=== PATIENT | female | born 1980 | race Caucasian/White ===

== ENCOUNTER 2016-11-03 13:37 | Inpatient (IN) | payer OTHER ==
[~2016-11-03] VITALS: Ht 165.1 cm; Wt 68.5 kg
[~2016-11-03 13:37] MED LIST: ALPRAZOLAM1 MG PO; CLONAZEPAM0.5 M2 PO; DICYCLOMINE HYD20 MG PO; DIVALPROEX SOD500 M3 PO; DULOXETINE HCL30 MG PO; ESCITALOPRAM OX20 MG PO; GABAPENTIN400 M2 PO; HALOPERIDOL5 MG PO; HYDROXYZINE PAM50 M1 PO; NAPROXEN500 M2 PO; PERCOCET 325 MG1 TA2 PO; PERCOCET 5-3251 EACH PO; SYNTHROID0.075 MG PO; TRAMADOL50 MG PO; TRAZODONE HCL100 M1 PO; ZOFRAN 4 MG TABL4 MG PO
--- NOTE | 2016-11-03 13:54 | NUR ---
PT COMES IN FROM OUTPATIENT PSYCH FOR SUICIDAL IDEATION. PT STATES SHE HAS ATTEMPTED TO KILL HERSELF BEFORE AND FEELS LIKE SHE IS HEADING DOWN THAT ROAD AGAIN. PT DID NOT DO ANY PHYSICAL HARM TO SELF TODAY.
--- NOTE | 2016-11-03 14:03 | NUR ---
PT IN [facility], AWARE OF PLAN OF CARE. UA OBTAINED. WAITING FOR ORDERS
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
--- NOTE | 2016-11-03 14:43 | NUR ---
BLOOD DRAWN AND SENT TO THE LAB BY ([facility])
[2016-11-03] MEDS ORDERED: SEROQUEL100 M1 PO ×2 (14:52→16:24)
[2016-11-03] MEDS ORDERED: LITHIUM CARBON150 M1 PO (14:52)
[2016-11-03] MEDS ORDERED: EFFEXOR XR150 M1 PO (14:53)
[2016-11-03] MEDS ORDERED: EFFEXOR XR75 M1 PO (14:54)
[2016-11-03 15:01] LABS: ABSOLUTE BASOPHIL COUNT 0 /CUMM (0.0-0.2); ABSOLUTE EOSINOPHIL COUNT 0.1 /CUMM (0.0-0.7); ABSOLUTE LYMPH COUNT 1.2 /CUMM (1.2-3.4); ABSOLUTE MONOCYTE COUNT 0.4 /CUMM (0.10-0.60); BASOPHIL % 0.5 % (0.0-2.0); EOSINOPHIL % 2.9 % (0-5); GRANULOCYTE % 63.2 % (42.2-75.2); HEMATOCRIT 39.6 % (37-47); MEAN CORPUSCULAR HGB 28.8 PG (27.0-31.0); MEAN CORPUSCULAR HGB CONC 33.5 G/DL (33.0-37.0); MEAN CORPUSCULAR VOLUME 85.9 FL (81.0-99.0); PLATELET COUNT 260 /CUMM (130-400); RBC DISTRIBUTION WIDTH 13.6 % (11.5-14.5); RED BLOOD CELL CT 4.61 /CUMM (4.20-5.40); WHITE BLOOD CELL COUNT 4.7 /CUMM (4.8-10.8)
--- NOTE | 2016-11-03 15:34 | ED PSY CRISIS COLLATERAL NOTE ---
Collateral Note Collateral Note Family/Inform/Rosalia Contacts: [facility] out pt therapist Olinda informed that pt is being sent to the ED for Crisis Eval. she sent the following Email to inform of the clinical concerns : Madhavi Bob is on your way. She came in today for an individual session and shared she has had thoughts of harming herself and last night she came close to acting on them. She was going to take more of her medication, but her boyfriend was watching her. She has DCF involvement, her worker, Jorge is out today but I spoke with her highway maintenance supervisor, Bea in the [facility]. If you need any more information, please feel free to contact me. Thanks, Kiki
--- NOTE | 2016-11-03 15:41 | NUR ---
PT RESTING COMFORTABLY ON STRETCHER, CALM/COOPERATIVE. SITTER IN ATTENDANCE. OFFERS NO COMPLAINTS AT THIS TIME.
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
--- NOTE | 2016-11-03 17:40 | NUR ---
RN REPORT GIVEN TO CPS
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
[2016-11-03 20:44] VITALS: BP 111/73
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
--- NOTE | 2016-11-04 05:44 | NUR ---
PT SAD AND TEARFUL DUIRING INTERVIEW FOR LATE ADMISSION. PT AGREES TO BE SAFE ON THE UNIT. SHE APPEARED TO SLEEP WELL.
[2016-11-04 07:06] LABS: LITHIUM 0.7 mmol/L (0.6-1.2)
[2016-11-04 08:04] VITALS: BP 101/74
--- NOTE | 2016-11-04 09:26 | NUR ---
DR KEMP NOTIFIED OF PTS C/O SEVERE LOWER ABDMINAL PAIN AND HX OF OVARIAN CYSTS. SHE IS AFEBRILE AND VSS. PT TO HAVE ULTRASOUND OF ABDOMEN
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
--- NOTE | 2016-11-04 10:59 | SOCIAL WORKER PROG NOTE PSYCH ---
Social Work Progress Note Progress Note Met with Madhavi today to complete social history. Madhavi was in bed, stated she has "bad cramps" and is in alot of pain. She stated she is still feeling very depressed, has SI, but feels safe onthe unit. She denied HI, no psychosis. She stated trigger to SI with plan to OD on pills, was conflicts with her boyfriend, Stefan (who she resides with). She stated she heard through her 14yo son that her boyfriend thinks she should get another job, that she doesn't make enough money to pay bills, and concerned that they may not be able to afford food at some point. 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 She stated her sleep has been disrupted over the past week or so, sleeping only 3hrs per night. Her appetite decreased, and low motivation and concentration. She stated her 14yo son is staying with his paternal Aunt while she is in the hospital. She identified that her boyfriend stated he told her he doesn't think he can go through another hospitalization with her, stating he has to worry about his son, and can't handle it anymore. Informed Madhavi her therapist is Aaliyah Borden LCSW. She agreed to a family meeting with her boyfriend, Stefan, but is concerned he may not want to participate. SHe identified that her cousin, Elsie may be a support if he is not willing to be.
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
--- NOTE | 2016-11-04 12:30 | ULTRASOUND REPORT ---
EXAMINATION: US PELVIS COMPLETE CLINICAL INFORMATION: Right lower pelvic pain; the last menstrual period was on 09/18/2016. COMPARISON: Pelvic ultrasound examinations dated 11/20/2015 and 04/24/2015. TECHNIQUE: Transabdominal and transvaginal imaging were performed. FINDINGS: The uterus is of normal size and echogenicity measuring 8.3 x 3.6 x 4.8 cm. The uterus is anteverted. A regular homogeneous endometrium is identified measuring 0.4 cm. The cervical length is 2.4 cm. Both ovaries are of normal echogenicity and show normal Doppler flow. The right measures 2.9 x 2.4 x 2.2 cm for a volume of 8.5 mL. The left measures 4.4 x 4.1 x 3.5 cm for a volume of 34.0 mL. The left ovary contains a 4.1 x 2.7 x 2.9 cm complex cyst with septations and internal cystic and hypoechoic, reticulated contents. There is no associated color Doppler flow. This is likely a hemorrhagic cyst, although this cannot be said with absolute certainty. There is no pelvic free fluid. IMPRESSION: 1. A probable left ovarian hemorrhagic, complex cyst is seen, with dimensions as detailed. As a precaution, recommend repeat pelvic sonography in 6 weeks to ensure regression/resolution and exclude the possibility of underlying neoplasm. As well, recommend Gynecology evaluation and management. 2. There is normal color Doppler flow to the bilateral ovaries, without finding to suggest torsion.
[2016-11-04 12:44] VITALS: BP 107/67
--- NOTE | 2016-11-04 13:36 | NUR ---
PT HAS BEEN IN BED FOR THE MAJORITY OF THE DAY. PT EXPRESSED INTENSE PAIN AND IS ANXIOUS AND WORRIED. PT REPORTS HAVING MINIMAL APPETITE. LITTLE TO NO INTERACTION WITH OTHERS, ISOLATIVE AND WITHDRAWN. PT TOLD STAFF THAT SHE DID NOT HAVE SI, BUT THAT IT CAN CHANGE AT ANY MOMENT AND THAT SHE DOES NOT ALWAYS FEEL SAFE. PT AGREED TO INFORM STAFF IF/WHEN HER MOOD OR THOUGHTS OF SI CHANGE.
--- NOTE | 2016-11-04 14:17 | NUR ---
DR. AMBRIZ NOTIFIED AT THIS TIME FOR CONSULT, NO FURTHER ORDERS AT THIS TIME.
[2016-11-04 17:15] VITALS: BP 93/59
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
[2016-11-04 19:50] VITALS: BP 111/64
--- NOTE | 2016-11-04 22:05 | NUR ---
PT IS ISOLATIVE AND WITHDRAWN, REMAINING IN BED FOR MAJORITY OF EVENING. MINIMAL INTERACTION WITH PEERS OR STAFF. COOPERATIVE AND COMPLIANT. REFUSED WRAP UP MEETING. PT REPORTS HIGH LEVELS OF PAIN, 10/10 AT 1600 VITALS AND 8/10 AT 2000. NO SI REPORTED. PT HAS AN ANXIOUS MOOD AND FLAT/CONSTRICTED AFFECT.
--- NOTE | 2016-11-05 05:53 | NUR ---
PATIENT SLEPT ALL NIGHT.
[2016-11-05 07:52] VITALS: BP 92/59
[2016-11-05 07:54] LABS: ABSOLUTE BASOPHIL COUNT 0 /CUMM (0.0-0.2); ABSOLUTE EOSINOPHIL COUNT 0.2 /CUMM (0.0-0.7); ABSOLUTE GRANULOCYTE CT 2.8 /CUMM (1.4-6.5); ABSOLUTE LYMPH COUNT 1.4 /CUMM (1.2-3.4); ABSOLUTE MONOCYTE COUNT 0.5 /CUMM (0.10-0.60); BASOPHIL % 0.5 % (0.0-2.0); EOSINOPHIL % 3.4 % (0-5); GRANULOCYTE % 57.4 % (42.2-75.2); HEMATOCRIT 37.8 % (37-47); MEAN CORPUSCULAR HGB 29.2 PG (27.0-31.0); MEAN CORPUSCULAR HGB CONC 34.2 G/DL (33.0-37.0); MEAN CORPUSCULAR VOLUME 85.3 FL (81.0-99.0); MEAN PLATELET VOLUME 8.3 FL (7.4-10.4); PLATELET COUNT 266 /CUMM (130-400); RBC DISTRIBUTION WIDTH 13.2 % (11.5-14.5); RED BLOOD CELL CT 4.43 /CUMM (4.20-5.40); WHITE BLOOD CELL COUNT 4.8 /CUMM (4.8-10.8)
--- NOTE | 2016-11-05 09:35 | OP PSYCH INCIDENTAL NOTE ---
OPS Incidential Note Details: Spoke with DCF worker, Jorge who called to get update on patient. Informed Jorge that patient was admitted to our inpatient department and provided contact number.
[2016-11-05 12:17] VITALS: BP 110/64
--- NOTE | 2016-11-05 13:22 | NUR ---
DR. LORENZO CONTACTED RE: PT REPORTING BEING IN A LOT OF PAIN AND REQUESTING HELP RE: THAT, PERCOCET CHANGED FROM EVERY 6 HOURS PRN TO EVERY 4 AND BOWEL REGIMENT TOO TO PREVENT CONSTIPATION - PT INFORMED ON THIS AND CAN REFUSED IF THERE IS NO ISSUE WITH THIS, VERBALIZED UNDERSTANDING.
--- NOTE | 2016-11-05 14:06 | NUR ---
PT SPENT MOST OF THE DAY IN HER ROOM SECONDARY TO ABDOMINAL PAIN R/T OVARIAN CYST. SHE DID TRY TO ATTEND ONE GROUP BUT FOUND IT DIFFICULT. PT APPEARS DEPRESSED AT TIMES AND WHEN ASKED SHE DENIED SUICIDAL THOUGHTS OR THOUGHTS OF SELF HARM
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
[2016-11-05 16:13] VITALS: BP 90/62
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
[2016-11-05 19:34] VITALS: BP 107/51
--- NOTE | 2016-11-05 21:54 | NUR ---
PT IS ISOLATIVE AND WITHDRAWN, REMAINING IN BED FOR MAJORITY OF EVENING. MINIMAL INTERACTION WITH PEERS AND STAFF. REFUSED WRAP UP MEETING. PT IS REPORTING HIGH LEVELS OF PAIN. NO SI REPORTED. PT HAS A ANXIOUS MOOD AND FLAT/CONSTRICTED AFFECT.
--- NOTE | 2016-11-06 04:47 | NUR ---
SLEPT WELL, OOB X1 FOR BR THEN REQUESTED HER PAIN MED. MED GIVEN WITH GOOD FFECT NOTED.
[2016-11-06 07:56] VITALS: BP 94/58
--- NOTE | 2016-11-06 11:39 | CP SOUTH PROGRESS NOTE PSYCH ---
Psych (Inpt) Progress Note Progress Note Progress Note: I discussed this patient's progress to date, current mental status, treatment process in the context of the treatment plan, and discharge planning with staff/ team in the daily morning inpatient team meeting. I also met with the patient myself in individual session. SUBJECTIVE: "I have really sharp pain from the ovarian cysts. I was ready to give up last night. I just wanted to give it up and end it all. It's not really helping my mental issues." OBJECTIVE: Current Medications Sig/Sixto Start time Last Medication Dose Route Stop Time Status Admin Clonazepam 1.5 MG AT BEDTIME 11/04 2200 AC 11/05 PO 04/05 2159 2132 Ibuprofen 600 MG Q6P PRN 11/04 0930 DC 11/06 PO 0806 [place] Carbonate 450 MG 08,11/05 2000 AC 11/06 PO 0805 [place] Carbonate 450 MG BID 11/03 2200 DC 11/05 PO 0908 Nicotine 14 MG 0800 11/05 0800 AC 11/06 TOP 0805 Oxycodone/ 1 TAB Q4 HRS NEEDED PRN 11/05 1315 AC 11/06 Acetaminophen PO 1019 Oxycodone/ 1 TAB Q6P PRN 11/04 1300 DC 11/05 Acetaminophen PO 1209 Quetiapine Fumarate 100 MG 0800 11/06 0800 AC 11/06 PO 0806 Quetiapine Fumarate 300 MG AT BEDTIME 11/05 2200 AC 11/05 PO 2133 Quetiapine Fumarate 200 MG QAM 11/04 1000 DC 11/05 PO 0908 Quetiapine Fumarate 200 MG AT BEDTIME 11/03 2200 DC 11/04 PO 2208 Senna/Docusate Sodium 1 TAB BID PRN 11/05 1315 AC PO Venlafaxine HCl 225 MG AT BEDTIME 11/03 2200 AC 11/05 PO 2132 Vital Signs Date Time Temp Pulse Resp B/P Pulse O2 O2 Flow FiO2 Ox Delivery Rate 11/06 0756 97.5 64 94/58 11/05 1934 98.1 65 107/51 11/05 1613 72 90/62 11/05 1217 69 110/64 ASSESSMENT: Patient complains of continuing pain from her ovarian cyst. Pain is somewhat relieved with Percocet. Patient is ambulating on the unit with slow but steady gait, as per nursing report she ate breakfast. She reports continuing depression and anxiety. Continuing suicidal thoughts, with no current plan or intent to harm herself. She is able contract for safety while here on the unit. States she is not able to focus on her mental health issues because of the abdominal pain. Nursing is calling the hospitalist for reevaluation of the patient's pain medications. Ibuprofen was discontinued due to contraindication with lithium. Denies homicidal ideation, auditory hallucinations, visual hallucinations, paranoid ideation. She reports that she did not sleep well last night, tossing and turning throughout the night due to abdominal pain. States she has little appetite, but is forcing herself to eat. Speech is well articulated, goal-directed, average in rate, volume and tone. Cooperative. Alert and oriented 3. Depressed and anxious affect. The patient understands the risks/benefits/side effects of the medication and is agreeable to continue taking them. PLAN: Hospitalist to reevaluate pain medication. Repeat lithium on Wednesday morning. Continue with other current management as patient is improving. Continue to provide support and encouragement.
[2016-11-06 12:19] VITALS: BP 99/51
--- NOTE | 2016-11-06 14:07 | SOCIAL WORKER PROG NOTE PSYCH ---
Social Work Progress Note Progress Note Patient continues to endorse +SI today with no plan while in the hosptial. Patient continues to present with depressed mood and affect and complaining of pain due to medical issues. This securities underwriter left voicemail for patients cousinKeyonna ([phone]), and invited her in for a family meeting sometime next week. Patient is aware that I called [facility] to inform them of her admission and that she will need to follow up with HR. Patient is alert and oriented x4, insight and judgement fair and denies HI/AH/VH.
--- NOTE | 2016-11-06 14:18 | NUR ---
PT IS COMPLAINING OF HIGH LEVELS OF PAIN 10/10 RELATED TO HER REPRODUCTIVE SYSTEM. DESPITE HER PAIN PT HAS BEEN ATTENDING GROUPS AND OUT IN THE COMMUNITY ALL DAY. RN NOTIFIED OF HER PAIN LEVEL. PT IS POLITE AND COOPERATIVE. DENIES ANY SI/HI TO THIS MHW AND VS ARE STABLE.
[2016-11-06 15:43] VITALS: BP 107/63
[2016-11-06 19:49] VITALS: BP 106/68
--- NOTE | 2016-11-06 22:06 | NUR ---
PT IS COOPERATIVE WITH STAFF AND PEERS, AND COMPLIANT WITH UNIT RULES. PT COMPLAINS OF SEVERE PAIN, AND SPENDS THE MAJORITY OF THE EVENING ISOLATING SELF WITHIN PT ROOM. MOOD IS STABLE, AFFECT IS FLAT/CONSTRICTED, COMMUNICATION IS ORGANIZED AND APPEARS NORMAL IN ALL RESPECTS, AND APPETITE IS NORMAL. PT DENIES SI AT THIS TIME.
--- NOTE | 2016-11-07 05:46 | NUR ---
CONTINUES TO LIE IN BED IN PAIN 05/18. TAKES PERCOCET Q4HRS AND SLEEPS.
[2016-11-07 06:23] LABS: ABSOLUTE BASOPHIL COUNT 0 /CUMM (0.0-0.2); ABSOLUTE EOSINOPHIL COUNT 0.1 /CUMM (0.0-0.7); ABSOLUTE GRANULOCYTE CT 1.9 /CUMM (1.4-6.5); ABSOLUTE MONOCYTE COUNT 0.3 /CUMM (0.10-0.60); BASOPHIL % 0.4 % (0.0-2.0); EOSINOPHIL % 3.1 % (0-5); GRANULOCYTE % 57.5 % (42.2-75.2); HEMATOCRIT 39.9 % (37-47); MEAN CORPUSCULAR HGB 28.8 PG (27.0-31.0); MEAN CORPUSCULAR HGB CONC 33.2 G/DL (33.0-37.0); MEAN CORPUSCULAR VOLUME 86.7 FL (81.0-99.0); MEAN PLATELET VOLUME 8.1 FL (7.4-10.4); PLATELET COUNT 253 /CUMM (130-400); WHITE BLOOD CELL COUNT 3.4 /CUMM (4.8-10.8)
[2016-11-07 08:07] VITALS: BP 102/65
[2016-11-07 12:14] VITALS: BP 110/61
--- NOTE | 2016-11-07 14:28 | NUR ---
VISIBLE AT TIME AMBULATING SLOWLY ON UNIT. MOOD IS STABLE, BLUNTED AFFECT. C/O PAIN RELATED TO OVARIAN CYST.DENIED THOUGHTS OF SELF HARM WHEN ASKED.
[2016-11-07 16:00] VITALS: BP 112/63
--- NOTE | 2016-11-07 16:58 | CP SOUTH PROGRESS NOTE PSYCH ---
Psych (Inpt) Progress Note Progress Note Include the following elements, when applicable: Involvement in the active treatment of the patient with behavioral observations of the patient and the patient's response to the treatment. Review of the ongoing treatment process in the context of the treatment plan. Indication of how multi-disciplinary staff members are carrying out the treatment plan. Plans for future interventions and recommendations for revision of the treatment plan. Liaison with other physicians/providers. Progress Note: Pt in bed. She is very depressed and upset as bf moving his things out of joint home they have shared. He stated that she was "Selfish" for her depression. She is very upset. Notes some passive SI but denies active. Feels can come to staff if worsening thoughts. She also notes continued pain from ovarian cyst. Not sleeping well. Current Medications Sig/Sixto Start time Last Medication Dose Route Stop Time Status Admin Clonazepam 1.5 MG AT BEDTIME 11/04 220 AC 11/06 PO 11/11 2159 2139 [place] Carbonate 450 MG 799,11/05 PO 0816 Nicotine 14 MG 11/05 08 AC 11/07 TOP 0816 Oxycodone/ 1 TAB Q4 HRS NEEDED PRN 11/05 1315 AC 11/07 Acetaminophen PO 1225 Quetiapine Fumarate 100 MG 11/06 0800 AC 11/07 PO 0816 Quetiapine Fumarate 300 MG AT BEDTIME 11/05 2200 AC 11/06 PO 2138 Senna/Docusate Sodium 1 TAB BID PRN 11/05 1315 AC PO Trazodone HCl 50 MG AT BEDTIME NEED.. 11/07 1700 UNVr PO Venlafaxine HCl 225 MG AT BEDTIME 11/03 2200 AC 11/06 PO 2138 Laboratory Tests 11/07 11/07 0810 0555 Chemistry Sodium (137 - 145 mmol/L) 136 L Potassium (3.5 - 5.1 mmol/L) 4.5 Chloride (98 - 107 mmol/L) 100 Carbon Dioxide (22 - 30 mmol/L) 33 H Anion Gap (5 - 16) 4 L BUN (7 - 17 mg/dL) 13 Creatinine (0.5 - 1.0 mg/dL) 0.8 Estimated GFR (>60 ml/min) > 60 BUN/Creatinine Ratio (7 - 25 %) 16.3 Hematology CBC w Diff NO MAN DIFF REQ WBC (4.8 - 10.8 /CUMM) 3.4 L RBC (4.20 - 5.40 /CUMM) 4.60 Hgb (12.0 - 16.0 G/DL) 13.3 Hct (37 - 47 %) 39.9 MCV (81.0 - 99.0 FL) 86.7 MCH (27.0 - 31.0 PG) 28.8 RDW (11.5 - 14.5 %) 13.0 Plt Count (130 - 400 /CUMM) 253 MPV (7.4 - 10.4 FL) 8.1 Gran % (42.2 - 75.2 %) 57.5 Lymphocytes % (20.5 - 51.1 %) 28.8 Monocytes % (1.7 - 9.3 %) 10.2 H Eosinophils % (0 - 5 %) 3.1 Basophils % (0.0 - 2.0 %) 0.4 Absolute Granulocytes (1.4 - 6.5 /CUMM) 1.9 Absolute Lymphocytes (1.2 - 3.4 /CUMM) 1.0 L Absolute Monocytes (0.10 - 0.60 /CUMM) 0.3 Absolute Eosinophils (0.0 - 0.7 /CUMM) 0.1 Absolute Basophils (0.0 - 0.2 /CUMM) 0 PUBS MCHC (33.0 - 37.0 G/DL) 33.2 Urines Urine Color (YEL,AMB,STR) YEL Urine Clarity (CLEAR) CLEAR Urine pH (5.0 - 8.0) 7.0 Ur Specific [place] (1.001 - 1.035) 1.015 Urine Protein (NEG,<30 MG/DL) NEG Urine Ketones (NEG) NEG Urine Nitrite (NEG) NEG Urine Bilirubin (NEG) NEG Urine Urobilinogen (0.1 - 1.0 EU/dl) 0.2 Ur Leukocyte Esterase (NEG) NEG Ur Microscopic SEDIMENT EXAMINED Urine RBC (0 - 5 /HPF) RARE Urine WBC (0 - 2 /HPF) RARE Ur Epithelial Cells (NONE,FEW) MOD H Urine Bacteria (NEG/NONE) FEW H Urine Hemoglobin (NEG) TRACE-INTACT Urine Glucose (N MG/DL) NEG 11/05 0613 Chemistry Sodium (137 - 145 mmol/L) 137 Potassium (3.5 - 5.1 mmol/L) 4.1 Chloride (98 - 107 mmol/L) 103 Carbon Dioxide (22 - 30 mmol/L) 29 Anion Gap (5 - 16) 5 BUN (7 - 17 mg/dL) 15 Creatinine (0.5 - 1.0 mg/dL) 0.9 Estimated GFR (>60 ml/min) > 60 BUN/Creatinine Ratio (7 - 25 %) 16.7 Hematology CBC w Diff NO MAN DIFF REQ WBC (4.8 - 10.8 /CUMM) 4.8 RBC (4.20 - 5.40 /CUMM) 4.43 Hgb (12.0 - 16.0 G/DL) 12.9 Hct (37 - 47 %) 37.8 MCV (81.0 - 99.0 FL) 85.3 MCH (27.0 - 31.0 PG) 29.2 RDW (11.5 - 14.5 %) 13.2 Plt Count (130 - 400 /CUMM) 266 MPV (7.4 - 10.4 FL) 8.3 Gran % (42.2 - 75.2 %) 57.4 Lymphocytes % (20.5 - 51.1 %) 28.8 Monocytes % (1.7 - 9.3 %) 9.9 H Eosinophils % (0 - 5 %) 3.4 Basophils % (0.0 - 2.0 %) 0.5 Absolute Granulocytes (1.4 - 6.5 /CUMM) 2.8 Absolute Lymphocytes (1.2 - 3.4 /CUMM) 1.4 Absolute Monocytes (0.10 - 0.60 /CUMM) 0.5 Absolute Eosinophils (0.0 - 0.7 /CUMM) 0.2 Absolute Basophils (0.0 - 0.2 /CUMM) 0 PUBS MCHC (33.0 - 37.0 G/DL) 34.2 Vital Signs Date Time Temp Pulse Resp B/P Pulse O2 O2 Flow FiO2 Ox Delivery Rate 11/07 1600 75 112/63 11/07 1214 89 110/61 11/07 0807 97.6 69 102/65 11/06 1949 99.2 69 106/68 MSE Appears as stated age. Cooperative behavior, good, appropriate eye contact. Nl speech rate and prosody. No psychomotor retardation or agitation. Mood fine Affect depressed, constricted, appropriate, non-liable. Linear and goal directed thought process. Denies SI or HI. Does not appear to be responding to internal stimuli. Denies AVHs, paranoia, or delusions. I/J: limited A/P: Pt with MDD now with increasing depression in the setting of breakup from bf and pain. - Added trazodone for sleep - Continue perocet for ovarian pain - Encourage intergration into the milieu
[2016-11-07 19:29] VITALS: BP 103/60
--- NOTE | 2016-11-07 21:41 | NUR ---
PT IS STABLE WITH FLAT/CONSTRICTED AFFECT. PT REPORTED PAIN ON SCALE OF 10/10 AND THAT NOT MUCH "HELPS TO RELIEVE THE PAIN". PT DID STAY OUT IN THE COMMUNITY FOR MOST OF EVENING SHIFT AND INTERACTS FREQUENTLY WITH OTHERS. PT ATTENDED WRAP UP GROUP AND MADE GOAL FOR THE DAY. VS ARE STABLE AND REPORTED PASSIVE SI BUT NO PLAN WHILE ON UNIT.
--- NOTE | 2016-11-08 06:21 | NUR ---
PT APPEARED TO SLEEP WELL. PT WITH OVARIAN CYST PAIN. 5 PERCOCETS USED YSTERDAY.
[2016-11-08 07:31] VITALS: BP 117/64
[2016-11-08 12:12] VITALS: BP 104/66
--- NOTE | 2016-11-08 12:27 | CP SOUTH PROGRESS NOTE PSYCH ---
Psych (Inpt) Progress Note Progress Note Include the following elements, when applicable: Involvement in the active treatment of the patient with behavioral observations of the patient and the patient's response to the treatment. Review of the ongoing treatment process in the context of the treatment plan. Indication of how multi-disciplinary staff members are carrying out the treatment plan. Plans for future interventions and recommendations for revision of the treatment plan. Liaison with other physicians/providers. Progress Note: Pt notes that she is in a lot of pain. Amenable to addition of warm compress. Would like to be seen by GAS PUMPING STATION SUPERVISOR wednesday if possible. She spoke about recent breakup with bf. He called yesterday to ask if he could have the TV. Pt was frustrated by this and hung up on him. She is worried about discharge as she will be returning to the home they once shared. Pt is hopeful about family meeting with mother and cousin, Supriya, who is a strong support for her. Notes ongoing passive vague SI. Denies active. Approached staff last night and remained visable when felt passive SI worsening. Current Medications Sig/Sixto Start time Last Medication Dose Route Stop Time Status Admin Clonazepam 1.5 MG AT BEDTIME 11/04 2200 AC 11/07 PO 11/11 2159 2119 [place] Carbonate 450 MG 799,11/05 AC 11/08 PO 0758 Nicotine 14 MG 11/05 0800 AC 11/08 TOP 0758 Oxycodone/ 1 TAB Q4 HRS NEEDED PRN 11/05 1315 AC 11/08 Acetaminophen PO 1138 Quetiapine Fumarate 100 MG 11/06 0800 AC 11/08 PO 0758 Quetiapine Fumarate 300 MG AT BEDTIME 11/05 2200 AC 11/07 PO 2120 Senna/Docusate Sodium 1 TAB BID PRN 11/05 1315 AC 11/08 PO 1137 Trazodone HCl 50 MG AT BEDTIME NEED.. 11/07 1700 AC PO Venlafaxine HCl 225 MG AT BEDTIME 11/03 2200 AC 11/07 PO 2119 Laboratory Tests 11/07 11/07 0810 0555 Chemistry Sodium (137 - 145 mmol/L) 136 L Potassium (3.5 - 5.1 mmol/L) 4.5 Chloride (98 - 107 mmol/L) 100 Carbon Dioxide (22 - 30 mmol/L) 33 H Anion Gap (5 - 16) 4 L BUN (7 - 17 mg/dL) 13 Creatinine (0.5 - 1.0 mg/dL) 0.8 Estimated GFR (>60 ml/min) > 60 BUN/Creatinine Ratio (7 - 25 %) 16.3 Hematology CBC w Diff NO MAN DIFF REQ WBC (4.8 - 10.8 /CUMM) 3.4 L RBC (4.20 - 5.40 /CUMM) 4.60 Hgb (12.0 - 16.0 G/DL) 13.3 Hct (37 - 47 %) 39.9 MCV (81.0 - 99.0 FL) 86.7 MCH (27.0 - 31.0 PG) 28.8 RDW (11.5 - 14.5 %) 13.0 Plt Count (130 - 400 /CUMM) 253 MPV (7.4 - 10.4 FL) 8.1 Gran % (42.2 - 75.2 %) 57.5 Lymphocytes % (20.5 - 51.1 %) 28.8 Monocytes % (1.7 - 9.3 %) 10.2 H Eosinophils % (0 - 5 %) 3.1 Basophils % (0.0 - 2.0 %) 0.4 Absolute Granulocytes (1.4 - 6.5 /CUMM) 1.9 Absolute Lymphocytes (1.2 - 3.4 /CUMM) 1.0 L Absolute Monocytes (0.10 - 0.60 /CUMM) 0.3 Absolute Eosinophils (0.0 - 0.7 /CUMM) 0.1 Absolute Basophils (0.0 - 0.2 /CUMM) 0 PUBS MCHC (33.0 - 37.0 G/DL) 33.2 Urines Urine Color (YEL,AMB,STR) YEL Urine Clarity (CLEAR) CLEAR Urine pH (5.0 - 8.0) 7.0 Ur Specific [place] (1.001 - 1.035) 1.015 Urine Protein (NEG,<30 MG/DL) NEG Urine Ketones (NEG) NEG Urine Nitrite (NEG) NEG Urine Bilirubin (NEG) NEG Urine Urobilinogen (0.1 - 1.0 EU/dl) 0.2 Ur Leukocyte Esterase (NEG) NEG Ur Microscopic SEDIMENT EXAMINED Urine RBC (0 - 5 /HPF) RARE Urine WBC (0 - 2 /HPF) RARE Ur Epithelial Cells (NONE,FEW) MOD H Urine Bacteria (NEG/NONE) FEW H Urine Hemoglobin (NEG) TRACE-INTACT Urine Glucose (N MG/DL) NEG Vital Signs Date Time Temp Pulse Resp B/P Pulse O2 O2 Flow FiO2 Ox Delivery Rate 11/08 1212 83 104/66 11/08 0731 98.6 76 117/64 11/07 1929 98.7 74 103/60 11/07 1600 75 112/63 MSE Appears as stated age. Cooperative behavior, good, appropriate eye contact. Nl speech rate and prosody. No psychomotor retardation or agitation. Mood fine Affect depressed, constricted, appropriate, non-liable. Linear and goal directed thought process. Denies SI or HI. Does not appear to be responding to internal stimuli. Denies AVHs, paranoia, or delusions. I/J: limited A/P: Pt with MDD now with increasing depression in the setting of breakup from bf and pain. - Continue trazodone for sleep - Continue perocet for ovarian pain, to add warm compress - Pt wants to see GAS PUMPING STATION SUPERVISOR tomorrow - Family meeting tomorrow - Encourage intergration into the milieu
--- NOTE | 2016-11-08 13:34 | NUR ---
PT IS COMPLIANT AND COOPERATIVE WITH UNIT RULES. PT IS ISOATLIVE IN ROOM FOR MOST OF SHIFT BUT IS ATTENDING SOME GROUPS. PT ATTENDED PLANNING BUT NOT FOCUS. PT MOOD IS STABLE WITH A CONSTRICTED AFFECT. PT REPROTED SI THOUGHTS, PASSIVE THOUGHTS BECAUSE OF THE PAIN. PT DENIES PLAN.
--- NOTE | 2016-11-08 15:34 | NUR ---
PT SHOWED STAFF SUPERFICIAL LACS TO ANTERIOR LEFT WRIST AND TOLD THIS RN THAT THEY WERE MADE IN AN ATTEMPT TO RELEASE TENSION AND ANXIETY AND NOT IN ANY WAY A SUICIDAL ATTEMPT AND THAT THE THOUGHTS ARE FLEETING AND CURRENTLY NO SELF HARM THOUGHTS AND WOULD LET STAFF KNOW IF THAT CHANGED. LEFT WRIST CLEANED AND DRESSED AND COMFORT PROVIDED, DR. DHALIWAL CONTACTED AND AWARE WELL ALL STAFF - NO FURTHER ORDERS.
[2016-11-08 15:41] VITALS: BP 115/63
[2016-11-08 20:08] VITALS: BP 101/61
--- NOTE | 2016-11-08 22:22 | NUR ---
PATIENT ALERT AND ORIENTED X3; SHE CONTINUES TO ENDORSE PASSIVE SUICIDAL IDEATION, BUT CONTRACTS FOR SAFETY WHILE IN THE HOSPITAL; NO FURTHER ACTS OF CUTTING OR SELF HARM ON 3-11 SHIFT; PATIENT AGREED TO COME TO STAFF IF SHE HAS ANY FURTHER URGES TO CUT; AFFECT REMAINS SAD, WITH DEPRESSION EVIDENT; PAIN DUE TO OVARIAN CYST CONTINUES TO BE A COMPLICATING FACTOR; PATIENT PRESENT IN LOUNGE MOST OF EVENING. WATCHING TV AND OBSERVING PEERS AND STAFF.
--- NOTE | 2016-11-09 07:37 | NUR ---
PATIENT SLEPT MOST OF NIGHT BUT WAS AWAKE AT 0600 IN SEVERE PELVIC PAIN DUE TO OVARIAN CYST AND WAS GIVEN PRN PERCOCET.
[2016-11-09 07:50] VITALS: BP 99/56
[2016-11-09 12:24] VITALS: BP 111/65
--- NOTE | 2016-11-09 14:54 | NUR ---
PT IS COMPLIANT AND COOPERATIVE. MOOD IS STABLE WITH A FLAT AND TEARFUL AFFECT. PT DENIES SI AT THIS TIME, C/O PAIN D/T OVARIAN CYST. PT HAS BEEN WITHDRAWN AND ISOLATIVE IN BED- SLEEPING MUCH OF SHIFT. PT HAS MINIMAL INTERACTION WITH PEERS AND STAFF. PT IS ATTENDING SOME GROUPS. VITALS ARE STABLE, APPETITE IS GOOD.
--- NOTE | 2016-11-09 15:28 | SOCIAL WORKER PROG NOTE PSYCH ---
Social Work Progress Note Progress Note Patient continues to present today with depressed mood and affect. Patient had a difficult weekend and admitted to the [facility] with a fork. Patient reports having a difficult time processing her recent break up and fears returning home to an empty house. Patient reports that her boyfriend did move out of the house and she has not talked to him. Patients cousin plans to come to the hospital tomorrow at 3pm for a family meeting. Patient reports fleeting suicidal thoughts but does report feeling somewhat improved since her admission. She reports anxiety over the pain she is experiencing due to medical condition and is concerned that it could be worsening. Patient informed to share this more with nursing staff and Kranthi Velazquez APRN.
[2016-11-09 16:02] VITALS: BP 106/61
--- NOTE | 2016-11-09 16:12 | CP SOUTH PROGRESS NOTE PSYCH ---
Psych (Inpt) Progress Note Progress Note Progress Note: I discussed this patient's progress to date, current mental status, treatment process in the context of the treatment plan, and discharge planning with staff/ team in the daily morning inpatient team meeting. I also met with the patient myself in individual session. SUBJECTIVE: "I scratched my left wrist with a fork. I had overwhelming depression, worthlessness. I wanted to feel something else than what I was feeling. It was a release of some kind of pain." OBJECTIVE: Current Medications Sig/Sixto Start time Last Medication Dose Route Stop Time Status Admin Clonazepam 1.5 MG AT BEDTIME 11/04 2200 AC 11/08 PO 11/11 2159 2153 [place] Carbonate 450 MG 799,11/05 AC 11/09 PO 0853 Nicotine 14 MG 11/05 08 AC 11/09 TOP 0800 Oxycodone/ 1 TAB Q4 HRS NEEDED PRN 11/05 1315 AC 11/09 Acetaminophen PO 1623 Quetiapine Fumarate 100 MG 11/06 08 AC 11/09 PO 0800 Quetiapine Fumarate 300 MG AT BEDTIME 11/05 2200 AC 11/08 PO 2152 Senna/Docusate Sodium 1 TAB BID PRN 11/05 1315 AC 11/09 PO 1224 Trazodone HCl 50 MG AT BEDTIME NEED.. 11/07 1700 AC 11/08 PO 2154 Venlafaxine HCl 225 MG AT BEDTIME 11/03 2200 AC 11/08 PO 2152 Laboratory Tests 11/09 0600 Toxicology [place] (0.6 - 1.2 mmol/L) 0.6 Vital Signs Date Time Temp Pulse Resp B/P Pulse O2 O2 Flow FiO2 Ox Delivery Rate 11/09 1602 70 106/61 11/09 1224 79 111/65 11/09 0750 97.0 72 99/56 11/09 2007 98.7 72 101/61 ASSESSMENT: Patient reports continuing depression and anxiety. Reports tolerating her medications well. She also reports continuing ovarian cyst pain. States that Percocet "takes the edge off the pain", however the pain continues. I spoke with MACHINE SHOP WORKER Dr. Neal, who requested a repeat transvaginal ultrasound, stated that he would see the patient tomorrow. States that he is available on Wednesday for surgery if this should be warranted. Patient is aware, and agrees to this plan. Denies suicidal ideation, homicidal ideation, auditory hallucinations, visual hallucinations, paranoid ideation. Although patient has expressed suicidal ideation in the past, states that she is not having suicidal thoughts today. Reports that she slept better last night after takin trazodone. Speech is well articulated, goal-directed, average in rate, volume and tone. The patient understands the risks/benefits/side effects of the medication and is agreeable to continue taking them. PLAN: Ultrasound pending. Continue with current management as patient is improving. Continue to provide support and encouragement.
[2016-11-09 19:41] VITALS: BP 109/66
--- NOTE | 2016-11-09 22:15 | NUR ---
Pt is out in the community mood is stable affect is guarded, Pt is compliant and cooperative, vital signs are stable appetite is good. Will continue to monitor the pt overnight.
--- NOTE | 2016-11-10 01:39 | ULTRASOUND REPORT ---
EXAMINATION: ULTRASOUND PELVIC, COMPLETE CLINICAL INFORMATION: History of ovarian cyst. COMPARISON: Transvaginal ultrasound 11/04/2016 TECHNIQUE: Transvaginal: Used to better visualize pelvic structures Transabdominal: Not adequate for visualization Spectral Doppler and color Doppler exam was utilized. LMP: Uncertain FINDINGS: UTERUS: Uterus is anteverted. Uterus measures 7.9 x 2.6 x 3.9 cm. Cervical length 1.8 cm. Endometrial thickness 0.4 cm. Total uterine volume 41.5 mL. ADNEXA: Ovarian vascularity:Doppler demonstrates both arterial and venous vascular flow in the right and left ovary. No evidence of ovarian torsion. Right Ovary: Unremarkable. Right ovary measures 2.4 x 1.4 x 2 cm. Right ovarian volume 3.3 mL. Left Ovary: Dominant follicle in the left ovary measures 2.2 x 0.9 x 1.3 cm. The left ovary measures 2.7 x 1.6 x 2.3 cm. Volume 5.3 mL Cul-de-sac: No Fluid IMPRESSION: Dominant follicle left ovary measuring 2.2 cm. No large cysts of right or left ovary.
--- NOTE | 2016-11-10 06:02 | NUR ---
SLEPT WELL, NO COMPLAINTS OFFERED
[2016-11-10 08:22] VITALS: BP 112/71
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
[2016-11-10 12:29] VITALS: BP 103/60
--- NOTE | 2016-11-10 13:13 | SOCIAL WORKER PROG NOTE PSYCH ---
Social Work Progress Note Progress Note Spoke with patients DCF worker, Jorge. Jorge inquired about patients current treatment stay and how she is responding. I informed her of med changes, participation on the unit and aftercare plan. She reported that they are currently in the process of trying to finalize where patients son will reside once patient is discharged from the hospital. At this time he is staying with patients aunt and DCF is unsure if they feel comfortable returning him home with her directly discharging from the hospital. Patient is aware of this and reports concern and sadness over this situation. Patients cousin, Keyonna, came in for family meeting today. Keyonna is a close family member to patient, although Keyonna reported that recently patient has been somewhat distant. Patient was informed during this meeting that her son will not be returning directly home with her when she returns home. Patient was very upset to hear this and was tearful in meeting reporting high levels of depression and sadness. Patient denied suicidal thoughts at present but reported feeling like things could not get any worse. Patients cousin suggested patient stay with her temporarily once discharged from the hospital due to fear of patient returning home alone. Patient has agreed to stay with her cousin temporarily and attend IOP at . Patient tentatively planning for discharge by the end of the week.
--- NOTE | 2016-11-10 14:31 | NUR ---
PT VISIBLE SOME OF THE DAY IN THE MILIEU. SHE DID NOT GO TO GROUPS THIS MORNING, BUT DID ATTEND AFTERNOON GROUPS. PT HAS SOME INTERACTIONS WITH HER PEERS, AND HAS BEEN COOPERATIVE WITH STAFF DIRECTION. SHE DENIES THOUGHTS OF HURTING HERSELF WHEN ASKED.
--- NOTE | 2016-11-10 14:32 | NUR ---
PT DID NOT ATTEND GROUPS TODAY.SHE STATED SHE HAD SOME BAD NEWS FROM HER AUNT THAT DCF WAS TRYING TO TAKE HER CHILD. PT WAS ABLE TO VERBALIZE HER FEELINGS APPROPRIATELY AND AGREED SHE SHOULD CONTACT HER DCF WORKER TO CLARIFY. SHE DENIED SUICIDAL THOUGHTS BUT IS ANXIOUS AND DEPRESSED. SHE IS COMPLIANT WITH HER MED REGIME
[2016-11-10 16:01] VITALS: BP 108/64
--- NOTE | 2016-11-10 18:02 | CP SOUTH PROGRESS NOTE PSYCH ---
Psych (Inpt) Progress Note Progress Note Progress Note: I discussed this patient's progress to date, current mental status, treatment process in the context of the treatment plan, and discharge planning with staff/ team in the daily morning inpatient team meeting. I also met with the patient myself in individual session. SUBJECTIVE: "I feel like I'm losing a tool trouble shooter on everything." OBJECTIVE: Current Medications Sig/Sixto Start time Last Medication Dose Route Stop Time Status Admin Clonazepam 1.5 MG AT BEDTIME 11/04 220 AC 11/09 PO 11/11 2159 2144 [place] Carbonate 450 MG 799,11/05 AC 11/10 PO 0804 Nicotine 14 MG 11/05 08 AC 11/10 TOP 0805 Oxycodone/ 1 TAB Q4 HRS NEEDED PRN 11/05 1315 AC 11/10 Acetaminophen PO 1333 Quetiapine Fumarate 100 MG 11/06 08 AC 11/10 PO 0804 Quetiapine Fumarate 300 MG AT BEDTIME 11/05 2200 AC 11/09 PO 2143 Senna/Docusate Sodium 1 TAB BID PRN 11/05 1315 AC 11/10 PO 1334 Trazodone HCl 50 MG AT BEDTIME NEED.. 11/07 1700 AC 11/08 PO 2154 Venlafaxine HCl 225 MG AT BEDTIME 11/03 2200 AC 11/09 PO 2142 Vital Signs Date Time Temp Pulse Resp B/P Pulse O2 O2 Flow FiO2 Ox Delivery Rate 11/10 1601 77 108/64 11/10 1229 80 103/60 11/10 0822 97.8 77 112/71 11/09 1941 99.2 81 109/66 11/09 1833 Room Air ASSESSMENT: Today I met the patient in a family meeting along with group social worker Aaliyah, the patient, and her cousin Keyonna. Patient was tearful at the information that her son would be staying temporarily with family, and not returning home, as per DCF. Patient's cousin offered her support, and also offered to have the patient stay with her at her home, temporarily, in [place] after discharge. The patient agreed to stay at her cousin's home temporarily after discharge. Patient continues to report depression and anxiety. Abdominal pain continues, she is awaiting a visit from CODING QUALITY COORDINATOR. Nevertheless, states that she is no longer having suicidal ideation, believes she'll be safe and ready for discharge in the near future. Tolerating her medications well. Denies suicidal ideation, homicidal ideation, auditory hallucinations, visual hallucinations, paranoid ideation. Patient states and also believes that she will not kill herself. Her major protective factor is her son. Speech is well articulated, goal-directed, average in rate, volume and tone. Tearful at times. Sad and depressed affect and mood. Alert and oriented 3. The patient understands the risks/benefits/side effects of the medication and is agreeable to continue taking them. PLAN: Anticipate discharge on Wednesday, IOP intake. Patient will stay temporarily at her cousin's home after discharge. Continue with current management as patient is improving. Continue to provide support and encouragement.
[2016-11-10 20:03] VITALS: BP 109/63
--- NOTE | 2016-11-10 21:22 | NUR ---
PT IS COOPERATIVE WITH STAFF AND PEERS, AND COMPLAINT WITH UNIT RULES. PT BEGAN EVENIG BEING SLIGHTLY ISOLATIVE/WITHDRAWN, STAYING IN PT RROM, OUT OF MILIEU. THE NIGHT PROGRESSED PT BEGAN SPENDING MORE TIME IN MILIEU, INTERACTING WELL WITH OTHERS. MOOD IS STABLE, AFFECT IS EUTHYMIC, APPEARS ANXIOUS AT TIMES, COMMUNCIATION IS ORGANIZED AND APPEARS NORMAL IN ALL RESPECTS, AND APPETITE IS NORMAL. PT DENIES SI AT THIS TIME.
--- NOTE | 2016-11-11 06:11 | NUR ---
PT APPEARED TO SLEEP. PT STILL WITH DISCOMFORT. PERCOCET PRN AT 2210.
[2016-11-11 07:50] VITALS: BP 112/70
[2016-11-11 12:02] VITALS: BP 119/67
[2016-11-11 12:23] VITALS: BP 119/67
--- NOTE | 2016-11-11 13:32 | NUR ---
PT IS WITHDRAWN AND FOCUSED ON ABDOMINAL PAIN/DISCOMFORT, AFTER TEAM MEETING PERCOCET ORDER CHANGED TO Q8 PRN. WHEN PT IS ON THE UNIT SHE PRESENTS FLAT AND DISHEVELED, DID GO TO GROUPS WITH MINIMAL INTERACTION WITH PEERS AND STAFF, + APPETITE, MED COMPLIANT.
--- NOTE | 2016-11-11 15:56 | SOCIAL WORKER PROG NOTE PSYCH ---
Social Work Progress Note Progress Note Patient found sleeping in her room this afternoon. Patient has been sleeping in her room most of the day today. She reports that she attended 2 groups today but is feeling very depressed. Patient denies suicidal thoughts but is having a difficult time motivating herslef. Patient was encouraged by this typewriter operator automatic to try to refrain from isolating and sleeping which could cause her to ruminate on all her current worries/stressors. Patient understood and agreed. She was encouraged to get out of bed and spend time in the milieu watch tv, color, or sociaize with peers. Patient agreed and got out of bed and walked out with this typewriter operator automatic. She denied any thoughts to hurt herself and was able to contract for safety at this time.
[2016-11-11 16:07] VITALS: BP 107/65
--- NOTE | 2016-11-11 17:45 | CP SOUTH PROGRESS NOTE PSYCH ---
Psych (Inpt) Progress Note Progress Note Progress Note: I discussed this patient's progress to date, current mental status, treatment process in the context of the treatment plan, and discharge planning with staff/ team in the daily morning inpatient team meeting. I also met with the patient myself in individual session. SUBJECTIVE: "Last night I really wanted to cut. I was fidgety. I've been having cutting and suicidal thoughts. When you're in that moment, you just want to feel a different way than you do now." OBJECTIVE: Current Medications Sig/Sixto Start time Last Medication Dose Route Stop Time Status Admin Clonazepam 1.5 MG AT BEDTIME 11/04 2199 AC 11/10 PO 11/11 2159 2135 [place] Carbonate 450 MG 11/05 AC 11/11 PO 0755 Nicotine 14 MG 11/05 08 AC 11/11 TOP 0755 Oxycodone/ 1 TAB Q8P PRN 11/11 1045 AC 11/11 Acetaminophen PO 1603 Oxycodone/ 1 TAB Q4 HRS NEEDED PRN 11/05 1315 DC 11/11 Acetaminophen PO 0757 Quetiapine Fumarate 100 MG 17011/11 1730 AC PO Quetiapine Fumarate 100 MG 11/06 0800 AC 11/11 PO 0755 Quetiapine Fumarate 300 MG AT BEDTIME 11/05 2200 AC 11/10 PO 2135 Senna/Docusate Sodium 1 TAB BID PRN 11/05 1315 AC 11/10 PO 1334 Trazodone HCl 50 MG AT BEDTIME NEED.. 11/07 1700 AC 11/08 PO 2154 Venlafaxine HCl 225 MG AT BEDTIME 11/03 2200 AC 11/10 PO 2135 Vital Signs Date Time Temp Pulse Resp B/P Pulse O2 O2 Flow FiO2 Ox Delivery Rate 11/11 1607 79 107/65 11/11 1223 82 119/67 11/11 1202 82 119/67 11/11 0750 96.6 68 112/70 11/10 2002 98.9 81 109/63 ASSESSMENT: Patient continues to complain of depression and anxiety, and has an anxious and depressed affect. Denies suicidal thoughts at this time, but states that she's been having thoughts of cutting. Nevertheless she was able to keep herself from doing so. Denies suicidal ideation, homicidal ideation, auditory hallucinations, visual hallucinations, paranoid ideation. Patient states and also believes that she will not kill herself. She reports that her son is her major protective factor. She spoke with him on the phone this afternoon. He stated to her that she was a "good mother." He is however upset that DCF is not letting him return home after patient's discharge. Currently he is staying at the home of a paternal aunt, as per DCF. Patient also stated that she was looking forward to staying with her cousin and aunt at their home in [place] after discharge. Speech is well articulated, goal-directed, average in rate, volume and tone. Calm, cooperative. Sad affect. Alert and oriented 3. The patient understands the risks/benefits/side effects of the medication and is agreeable to continue taking them. PLAN: Seroquel 100 mg at 5 PM. This is the time in the afternoon when the patient often begins to have exacerbations of anxiety, and cutting ideation. Continue with other current management as patient is improving. Continue to provide support and encouragement.
[2016-11-11 19:39] VITALS: BP 108/66
--- NOTE | 2016-11-11 20:48 | NUR ---
PT IS VISIBLE ON UNIT BUT IS VERY WITHDRAWN. PT IS WATCHING TV IN LOUNGE BUT DOES NOT CONVERSE WITH PEERS, MOSTLY STAYS TO HERSELF. NO SI REPORTED. PT DOES REPORT 8/10 FOR PAIN. COOPERATIVE AND COMPLIANT. PT HAS A STABLE MOOD AND FLAT AFFECT.
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
[2016-11-12 07:48] VITALS: BP 103/64
--- NOTE | 2016-11-12 12:05 | SOCIAL WORKER PROG NOTE PSYCH ---
Social Work Progress Note Progress Note Patient reported today feeling sad but reports not feeling as depressed today as she has felt the remainder of her hospitalization. She was found in the living room sitting with other peers this AM and not sleeping in her room for the first time this week. Patient expressed her desire to discharge tomorrow and stated that she is looking forward to spending time with family this weekend. She did report sadness over thinking about not seeing her boyfriend or her son when she discharges tomorrow, but feels good that she will have support from her cousin and aunt. Patient denies SI/HI/AH/VH at present. She has agreed to attend groups on the unit today and refrain from isolating in her room.
[2016-11-12 12:09] VITALS: BP 92/55
--- NOTE | 2016-11-12 13:54 | CP SOUTH PROGRESS NOTE PSYCH ---
Psych (Inpt) Progress Note Progress Note Progress Note: I discussed this patient's progress to date, current mental status, treatment process in the context of the treatment plan, and discharge planning with staff/ team in the daily morning inpatient team meeting. I also met with the patient myself in individual session. SUBJECTIVE: "I have to stay focused on getting better so my son can come home." OBJECTIVE: Current Medications Sig/Sixto Start time Last Medication Dose Route Stop Time Status Admin Clonazepam 1.5 MG AT BEDTIME 11/04 2199 DC 11/11 PO 11/11 2159 2132 [place] Carbonate 450 MG 799,11/05 AC 11/12 PO 0847 Nicotine 14 MG 11/05 08 AC 11/12 TOP 0846 Oxycodone/ 1 TAB Q12P PRN 11/12 1345 AC Acetaminophen PO Oxycodone/ 1 TAB Q8P PRN 11/11 1045 DC 11/12 Acetaminophen PO 0846 Quetiapine Fumarate 100 MG 1200 11/12 1345 UNVr PO Quetiapine Fumarate 100 MG 17011/11 1730 DC 11/11 PO 1737 Quetiapine Fumarate 100 MG 11/06 08 AC 11/12 PO 0847 Quetiapine Fumarate 300 MG AT BEDTIME 11/05 220 AC 11/11 PO 2126 Senna/Docusate Sodium 1 TAB BID PRN 11/05 1315 AC 11/10 PO 1334 Trazodone HCl 50 MG .STK-MED ONE 11/11 2124 DC PO 11/11 2126 Trazodone HCl 50 MG AT BEDTIME NEED.. 11/07 1700 AC 11/11 PO 2130 Venlafaxine HCl 150 MG 799,11/12 1400 UNVr PO Venlafaxine HCl 225 MG AT BEDTIME 11/03 2200 DC 11/11 PO 2127 Vital Signs Date Time Temp Pulse Resp B/P Pulse O2 O2 Flow FiO2 Ox Delivery Rate 11/12 1209 78 92/55 11/12 0748 97.3 76 103/64 / 1939 98.6 92 108/66 04/05 1607 79 107/65 ASSESSMENT: Patient states she feels safe and ready for discharge tomorrow. States she is ready to be out of the hospital, and spend time staying with her cousin, and to "move on." She has been a little bit more active in the community this morning attending some groups. Stated that she felt tired this afternoon, and was taking a nap after lunch. States she will try to participate in afternoon group activities. Denies urges to cut today. States that taking Seroquel 100 mg yesterday afternoon was helpful, requests that this dose be administered at noon. She continues to exhibit and report depression, and so we will increase Effexor to 150 mg twice daily. Patient agrees to these changes. Depression:8/; Anxiety:2/ (with 10 the worst.) Denies suicidal ideation, homicidal ideation, auditory hallucinations, visual hallucinations, paranoid ideation. Patient states and also believes that she will not kill herself. States she has not been having any suicidal thoughts today. Reports having little sleep last night, awakening every 2 hours. States she is spending a lot of time thinking about her ex-boyfriend, and time thinking about her son. States her appetite is fine. Speech is well articulated, goal-directed, average in rate, volume and tone. Sad affect. Cooperative. Alert and oriented 3. Logical. The patient understands the risks/benefits/side effects of the medication and is agreeable to continue taking them. PLAN: Effexor 150 mg twice daily. Seroquel 100 mg at noon instead of at 5 PM. Anticipate discharge tomorrow. Patient will be staying temporarily with her cousin and aunt. Continue with current management as patient is improving. Continue to provide support and encouragement.
--- NOTE | 2016-11-12 14:11 | NUR ---
PT VISIBLE IN THE [place] SOME OF THE DAY. SHE MADE NO GOAL FOR HERSELF SINCE SHE DID NOT COME TO PLANNING MEETING. PT WENT TO MINIMAL GROUPS TODAY, AND INTERACTS WITH SELECT PEERS WHEN IN THE [place]. SHE HAS BEEN COOPERATIVE WITH STAFF DIRECTION, AND DENIES THOUGHTS OF HURTING SELF WHEN ASKED.
[2016-11-12 16:17] VITALS: BP 108/65
[2016-11-12 19:39] VITALS: BP 116/72
--- NOTE | 2016-11-12 22:07 | NUR ---
PT IS VISIBLE ON UNIT BUT IS WITHDRAWN AND HAS MINIMAL INTERACTION WITH PEERS AND STAFF. PT MOSTLY STAYS TO HERSELF IN LOUNGE OR WILL ISOLATE IN ROOM. DID ATTEND WRAP UP MEETING. NO COMPLAINTS OR SI REPORTED. PT HAS AN ANXIOUS MOOD AND FLAT/CONSTRICTED AFFECT.
[2016-11-13 07:51] VITALS: BP 109/71
--- NOTE | 2016-11-13 08:28 | SOCIAL WORKER PROG NOTE PSYCH ---
Social Work Progress Note Progress Note Patient to discharge the hospital today. Patient denies SI/HI/AH/VH at present. Patient reports feeling ready to discharge today and plans to stay with her cousin, Keyonna. Keyonna is a safe and sober support for patient and allowing patient to stay with her until she feels ready to return home. Patient plans to follow up with DCF post discharge to finalize temporary placement for her son. Patient has intake at IOP today at 12:45PM. Patients cousin is aware that patient will be attending IOP at while residing with her and patient has car to take herself to and from groups. Patient reports some anxiety about facing the real world today and the reality that she is not returning to her boyfriend and son today. Patient reports sadness over this but denies any thoughts to hurt herself or others and states she will be safe.
--- NOTE | 2016-11-13 10:36 | CP SOUTH PROGRESS NOTE PSYCH ---
Psych (Inpt) Progress Note Progress Note Progress Note: I discussed this patient's progress to date, current mental status, treatment process in the context of the treatment plan, and discharge planning with staff/ team in the daily morning inpatient team meeting. I also met with the patient myself in individual session. SUBJECTIVE: "I'm feeling better because I'm going to a place where I'll have love and support and comfort." OBJECTIVE: Current Medications Sig/Sixto Start time Last Medication Dose Route Stop Time Status Admin Clonazepam 0.5 MG ONCE ONE 11/12 2129 DC 11/12 PO 11/12 2131 2215 [place] Carbonate 450 MG 799,11/05 AC 11/13 PO 0945 Nicotine 14 MG 11/05 AC 11/13 TOP 0945 Oxycodone/ 1 TAB Q12P PRN 11/12 134 AC 11/13 Acetaminophen PO 0945 Oxycodone/ 1 TAB Q8P PRN 11/11 1045 DC 11/12 Acetaminophen PO 0846 Quetiapine Fumarate 100 MG 1200 11/12 1345 AC 11/12 PO 1350 Quetiapine Fumarate 100 MG 1700 11/11 1730 DC 11/11 PO 1737 Quetiapine Fumarate 100 MG 11/06 0800 AC 11/13 PO 0946 Quetiapine Fumarate 300 MG AT BEDTIME 11/05 220 AC 11/12 PO 2120 Senna/Docusate Sodium 1 TAB BID PRN 11/05 1315 AC 11/10 PO 1334 Trazodone HCl 50 MG AT BEDTIME NEED.. 11/07 1700 AC 11/11 PO 2130 Venlafaxine HCl 150 MG 08,11/12 1400 AC 11/13 PO 0945 Venlafaxine HCl 225 MG AT BEDTIME 11/03 2200 DC 11/11 PO 2127 Vital Signs Date Time Temp Pulse Resp B/P Pulse O2 O2 Flow FiO2 Ox Delivery Rate 11/13 0751 97.9 71 109/71 11/12 1939 99.1 78 116/72 11/12 1617 71 108/65 11/12 1209 78 92/55 ASSESSMENT: Patient presents this morning with a smile, states she's feeling better. States she feels safe and ready for discharge. She is looking forward to staying with her cousin and aunt on a temporary basis until she feels stable enough to return home. She is also looking forward to attending IOP stating "I enjoyed it last time." Depression and anxiety continue, however patient states that she has improved. She is also having ambivalent thoughts about her boyfriend, who broke up with her because she came back to the hospital. States that she loves him, but now knows that he will not be there when she needs him. Depression:7/10; Anxiety:5/10 (with 10 the worst.) Denies suicidal ideation, homicidal ideation, auditory hallucinations, visual hallucinations, paranoid ideation. Patient states and also believes that she will not kill herself. Reports sleeping well at night. States her appetite is good. Speech is well articulated, goal-directed, average in rate, volume and tone. Calm, cooperative, pleasant, logical. Alert and oriented 3. The patient understands the risks/benefits/side effects of the medication and is agreeable to continue taking them. PLAN: Discharge today to IOP intake. Continue with current management as patient is improving. Continue to provide support and encouragement.
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
[2016-11-13] MEDS ORDERED: NICOTINE PATCH1 EAC2 TOP (11:19)
[2016-11-13] MEDS ORDERED: QUETIAPINE FUM100 M1 PO ×2 (11:19→11:21)
[2016-11-13] MEDS ORDERED: LITHIUM CARBON450 M1 PO (11:19)
[2016-11-13] MEDS ORDERED: QUETIAPINE FUM300 M1 PO (11:20)
[2016-11-13] MEDS ORDERED: TRAZODONE HCL50 M1 PO (11:21)
[2016-11-13] MEDS ORDERED: EFFEXOR XR150 M1 PO (11:22)
[2016-11-13 12:22] VITALS: BP 110/69
--- NOTE | 2016-11-13 12:31 | NUR ---
[place] [facility] [place] [facility]. Mood is stable, euthymic affect. dennies thoughts of self harm when asked. given education on suicide prevention, ptsd and depression
== END 2016-11-13 12:45 | DRG 754 ==
LOC: ERH 13:37 → CP SOUTH 18:20 → ENPENDDIS 18:20 → ERHI 18:20 → CMPBEDREQ 19:12 → CP SOUTH 20:42
PROVIDERS: Internal Medicine; Physician Assistant; Student in an Organized Health Care Education/Training Program; ADMIT Psychiatry & Neurology Addiction Medicine
DX: F32.9 Major depressive disorder, single episode, unspecified (principal); F43.10 Post-traumatic stress disorder, unspecified; F39 Unspecified mood [affective] disorder; E03.9 Hypothyroidism, unspecified; K58.9 Irritable bowel syndrome, unspecified; Z85.850 Personal history of malignant neoplasm of thyroid; N80.9 Endometriosis, unspecified
CPT/HCPCS: 36415; 80307; 81001; 81025; 82436; 87086; 90834; 93005; 93010; G0463-25; G0480

== ENCOUNTER 2016-11-19 14:01 | Emergency (ER) | payer OTHER ==
[~2016-11-19 14:01] MED LIST changes: +EFFEXOR XR150 M1 PO; +EFFEXOR XR75 M1 PO; +LITHIUM CARBON150 M1 PO; +LITHIUM CARBON450 M1 PO; +NICOTINE PATCH1 EAC2 TOP; +QUETIAPINE FUM100 M1 PO; +QUETIAPINE FUM300 M1 PO; +SEROQUEL100 M1 PO; +TRAZODONE HCL50 M1 PO
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
[2016-11-19 14:47] LABS: ABSOLUTE BASOPHIL COUNT 0 /CUMM (0.0-0.2); ABSOLUTE EOSINOPHIL COUNT 0.1 /CUMM (0.0-0.7); ABSOLUTE GRANULOCYTE CT 5.6 /CUMM (1.4-6.5); ABSOLUTE LYMPH COUNT 1.6 /CUMM (1.2-3.4); ABSOLUTE MONOCYTE COUNT 0.5 /CUMM (0.10-0.60); BASOPHIL % 0.4 % (0.0-2.0); EOSINOPHIL % 1.6 % (0-5); GRANULOCYTE % 71.2 % (42.2-75.2); HEMATOCRIT 39.8 % (37-47); MEAN CORPUSCULAR HGB 29.4 PG (27.0-31.0); MEAN CORPUSCULAR HGB CONC 34.4 G/DL (33.0-37.0); MEAN CORPUSCULAR VOLUME 85.4 FL (81.0-99.0); PLATELET COUNT 271 /CUMM (130-400); RBC DISTRIBUTION WIDTH 13.6 % (11.5-14.5); RED BLOOD CELL CT 4.66 /CUMM (4.20-5.40); WHITE BLOOD CELL COUNT 7.9 /CUMM (4.8-10.8)
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
[2016-11-20 09:15] VITALS: BP 106/58
== END 2016-11-20 09:20 ==
LOC: ERH 14:01
PROVIDERS: Emergency Medicine
DX: F41.9 Anxiety disorder, unspecified (principal); F31.9 Bipolar disorder, unspecified; R06.4 Hyperventilation; R07.89 Other chest pain; E03.9 Hypothyroidism, unspecified
CPT/HCPCS: 80307; 81025; 93005; 93010; 96372; G0463; G0480; J1630

== ENCOUNTER 2016-12-01 16:55 | Inpatient (IN) | payer OTHER ==
[~2016-12-01] VITALS: Ht 170.2 cm; Wt 70.4 kg
--- NOTE | 2016-12-01 17:02 | NUR ---
PT RUIZ FROM HOME FOR +SI. PT SHAKING IN ROOM STATES HER ANXIETY IS GETTING SO BAD WAS ADMITED TO [facility] NOT TO LONG AGO AND STATES SHE HAS THOUGHTS OF WANTING TO CUT HERSELF LIKE SHE HAS IN THE PAST. PT STATES SHE HASN'T BUT WANTED TO COME IN BEFORE SHE DID SOMETHING. PT DENIES ETOH OR DRUG USE. PT ALSO DENIES HI SECURITY AT BEDSIDE FOR EVAL.
--- NOTE | 2016-12-01 17:11 | NUR ---
PT BROUGHT DOWN TO [facility] AT BEDSIDE
[2016-12-01] MEDS ORDERED: VENLAFAXINE HCL75 M1 (17:14)
[2016-12-01] MEDS ORDERED: SEROQUEL XR400 M1 PO (17:15)
--- NOTE | 2016-12-01 17:21 | NUR ---
BLOOD DRAWN AND SENT TO LAB BY THIS [facility]. SST/LAV
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
[2016-12-01 17:36] LABS: ABSOLUTE BASOPHIL COUNT 0 /CUMM (0.0-0.2); ABSOLUTE EOSINOPHIL COUNT 0.1 /CUMM (0.0-0.7); ABSOLUTE GRANULOCYTE CT 3.5 /CUMM (1.4-6.5); ABSOLUTE LYMPH COUNT 1.3 /CUMM (1.2-3.4); ABSOLUTE MONOCYTE COUNT 0.6 /CUMM (0.10-0.60); BASOPHIL % 0.4 % (0.0-2.0); EOSINOPHIL % 2.5 % (0-5); GRANULOCYTE % 63.5 % (42.2-75.2); HEMATOCRIT 38.9 % (37-47); MEAN CORPUSCULAR HGB 28.8 PG (27.0-31.0); MEAN CORPUSCULAR HGB CONC 33.5 G/DL (33.0-37.0); MEAN CORPUSCULAR VOLUME 85.9 FL (81.0-99.0); MEAN PLATELET VOLUME 8.4 FL (7.4-10.4); PLATELET COUNT 261 /CUMM (130-400); RBC DISTRIBUTION WIDTH 13.8 % (11.5-14.5); RED BLOOD CELL CT 4.53 /CUMM (4.20-5.40); WHITE BLOOD CELL COUNT 5.6 /CUMM (4.8-10.8)
--- NOTE | 2016-12-01 17:45 | NUR ---
PT MEDICATED WITH ATIVAN 1MG PER EMAR FOR ANXIETY PT SITTING ON STRETCHER WITH SITTER AT BEDSIDE. PT REPORTS ANXIETY AND IS TREMULOUS
--- NOTE | 2016-12-01 19:10 | NUR ---
URINE TRIO SENT
--- NOTE | 2016-12-01 20:04 | NUR ---
PT MOVED FROM HALLWAY TO ROOM 15. PT CALM AND COOPERATIVE, REPORTING ANXIETY. YENI GAFFNEY MADE AWARE.
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
--- NOTE | 2016-12-01 21:05 | NUR ---
PT MEDICATED WITH ATIVAN 1MG FOR ANXIETY AND TRAZADONE 25MG FOR SLEEP. PT STATES THAT SHE USUALLY TAKES 50MG TABS, UP TO 3 PER NIGHT. WILL MAKE YENI GAFFNEY AWARE. PT LYING QUIETLY ON BED IN ROOM 15. SITTER AT DOOR. PT CALM AND COOPERATIVE.
--- NOTE | 2016-12-01 22:35 | NUR ---
PT ASLEEP ON BED IN ROOM 15. PT TO BE RE-EVAL'D BY CRISIS IN AM. RESPIRATIONS EQUAL AND UNLABORED. SITTER AT DOOR.
--- NOTE | 2016-12-01 23:36 | NUR ---
SLEEPING AT THIS TIME SITTER AT DOOR.
--- NOTE | 2016-12-02 02:00 | NUR ---
PT SLEEPING WITH REGULAR RR. SITTER REMAINS PRESENT.
--- NOTE | 2016-12-02 04:12 | NUR ---
PT TOSSING AND TURNING IN BED. NO ACUTE DISTRESS NOTED. SITTER PRESENT.
--- NOTE | 2016-12-02 06:22 | NUR ---
AWAKENED FOR VS. CO "HEARING VOICES THAT ARE TELLING HER TO DO BAD THINGS AND HARM HERSELF" DR VITAL AWARE.
--- NOTE | 2016-12-02 06:29 | NUR ---
SEROQUEL 100MG PO GIVEN. LITHIUM HELD AT THIS TIME. LITHIUM ADDED ON TO LABS -- STATES "SHE TAKES 475MG BID.
[2016-12-02 06:36] LABS: LITHIUM 0.6 mmol/L (0.6-1.2)
--- NOTE | 2016-12-02 07:12 | NUR ---
PT SITTING UP ON STRETCHER AT THIS TIME, AWARE WAIITNG ON LAB RESULTS AT THIS TIME. QUIQUE REMAINS IN DOORWAY FOR PT SAFETY AT THIS TIME
--- NOTE | 2016-12-02 10:27 | NUR ---
PT MEDICATED WITH MORNING MEDS. TOLERATED WELL. SITTER REMAINS AT BEDSIDE FOR PT SAFETY.
--- NOTE | 2016-12-02 10:43 | NUR ---
CRISIS AT BEDSIDE
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
--- NOTE | 2016-12-02 13:39 | NUR ---
PER CRISIS, PT TO BE ADMITTED TO [facility]
--- NOTE | 2016-12-02 14:16 | NUR ---
CALLED INTO ROOM BY EDUCATIONAL PROGRAMMING DIRECTOR, PT BANGING HEAD LIGHTLY ON WALL CRYING AT THIS TIME, ASKED PT WHAT WAS WRONG AND PT STATING "THE VOIDING WONT STOP TALKING TO ME, THEY WANT ME TO HURT MYSELF BUT DONT WANT TO" MD AWARE AND PT MEDICATED WITH 2MG PO ATIVAN AT THIS TIME. EMOTIONAL SUPPORT PROVIDED. MAR REMAINS IN DOORWAY FOR PT SAFETY
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
--- NOTE | 2016-12-02 14:29 | NUR ---
REPORT GIVEN TO ADELINA ISLAS.
--- NOTE | 2016-12-02 14:35 | NUR ---
1 BELONGINGS BAG AND 1 VALUABLES BAG SENT DOWN WITH PT. PT TRANSPORTED VIA WHEELCHAIR BY FEMALE SITTER AND SECURITY
--- NOTE | 2016-12-02 14:35 | NUR ---
JONATHNO YEUNG Nurse Note by: ANNIE GODFREY I agree with the NURSE MONITORING findings/evaluation of this patient's condition. Entered by: ANNIE GODFREY Date: 12/02/16 Time: 1116
[2016-12-02 15:21] VITALS: BP 113/67
--- NOTE | 2016-12-02 16:00 | PN- Att Addend ---
Attending Addendum Attending Brief Note Patient seen and examined, feels very depressed. She is admitted to Inpatient Psychiatry secondary to suicidal ideation and auditory hallucinations. She kept on saying there is a voice that I was hearing last night was telling me hurt myself. Patient also had a plan including suffocating with a blanket or hanging herself. She otherwise denies any aches or pains, urinary problems, no nausea, vomiting, diarrhea or constipation, no fevers. Vital Signs Date Time Temp Pulse Resp B/P B/P Pulse O2 O2 Flow FiO2 Mean Ox Delivery Rate 12/02 1521 98.5 67 113/67 12/02 1420 98.9 64 15 126/78 98 Room Air Room Air 12/02 1030 Room Air Room Air 12/02 0623 98.5 75 18 113/60 97 Room Air 12/01 2302 Room Air 12/01 2240 98.6 92 18 122/80 98 Room Air 12/01 2043 98.5 98 16 122/57 98 Room Air 12/01 2040 Room Air 12/01 1743 99.6 72 16 120/58 98 Room Air ON EXAM; aox3, nad. cv; s1,s2, rrr resp; clear abd; soft, nt, bs+ ext; no edema. Laboratory Tests 12/01 12/01 1905 1717 Chemistry Sodium (137 - 145 mmol/L) 137 Potassium (3.5 - 5.1 mmol/L) 4.1 Chloride (98 - 107 mmol/L) 102 Carbon Dioxide (22 - 30 mmol/L) 24 Anion Gap (5 - 16) 12 BUN (7 - 17 mg/dL) 10 Creatinine (0.5 - 1.0 mg/dL) 0.7 Estimated GFR (>60 ml/min) > 60 BUN/Creatinine Ratio (7 - 25 %) 14.3 Glucose (65 - 99 mg/dL) 95 Calcium (8.4 - 10.2 mg/dL) 9.3 Total Bilirubin (0.2 - 1.3 mg/dL) 0.6 AST (14 - 36 U/L) 16 ALT (9 - 52 U/L) 40 Alkaline Phosphatase (<127 U/L) 68 Total Protein (6.3 - 8.2 g/dL) 6.9 Albumin (3.5 - 5.0 g/dL) 4.3 Globulin (1.9 - 4.2 gm/dL) 2.6 Albumin/Globulin Ratio (1.1 - 2.2 %) 1.7 Hematology CBC w Diff NO MAN DIFF REQ WBC (4.8 - 10.8 /CUMM) 5.6 RBC (4.20 - 5.40 /CUMM) 4.53 Hgb (12.0 - 16.0 G/DL) 13.0 Hct (37 - 47 %) 38.9 MCV (81.0 - 99.0 FL) 85.9 MCH (27.0 - 31.0 PG) 28.8 RDW (11.5 - 14.5 %) 13.8 Plt Count (130 - 400 /CUMM) 261 MPV (7.4 - 10.4 FL) 8.4 Gran % (42.2 - 75.2 %) 63.5 Lymphocytes % (20.5 - 51.1 %) 23.6 Monocytes % (1.7 - 9.3 %) 10.0 H Eosinophils % (0 - 5 %) 2.5 Basophils % (0.0 - 2.0 %) 0.4 Absolute Granulocytes (1.4 - 6.5 /CUMM) 3.5 Absolute Lymphocytes (1.2 - 3.4 /CUMM) 1.3 Absolute Monocytes (0.10 - 0.60 /CUMM) 0.6 Absolute Eosinophils (0.0 - 0.7 /CUMM) 0.1 Absolute Basophils (0.0 - 0.2 /CUMM) 0 PUBS MCHC (33.0 - 37.0 G/DL) 33.5 Toxicology Urine Opiates Screen (>2000 NG/ML) < 100.00 Methadone Screen (>300 NG/ML) 51 Barbiturate Screen (>200 NG/ML) < 60 Ur Phencyclidine Scrn (>25 NG/ML) < 6.00 Amphetamines Screen (>1000 NG/ML) < 100 U Benzodiazepines Scrn (>200 NG/ML) < 85 Gonvick (0.6 - 1.2 mmol/L) 0.6 Urine Cocaine Screen (>300 NG/ML) < 50 Urine Cannabis Screen (>50 NG/ML) < 5.00 Serum Alcohol (<10 MG/DL) < 10.0 A/P; 36-year-old female with history significant for bipolar disorder, anxiety, depression who is admitted Inpatient Psychiatry with suicidal ideation, auditory hallucinations as well as worsening of depression. Patient does take Seroquel, Effexor or as well as lithium and Klonopin when necessary at home. I will leave the psych management up to psychiatrist. Her labs and vitals are pretty much stable.
[2016-12-02 16:42] VITALS: BP 106/67
--- NOTE | 2016-12-02 17:35 | NUR ---
Patient admitted to [facility] from [facility]. Patient is calm and cooperative. Patient is endorsing AH, reporting the voices are male and come "quite often". Patient affect flat at times. Patient is a good historian and able to verbalize need for inpatient stay. Patient currently denies pain and denies HI/VH. Patient speech clear ans coherent. PAtient reports recent stressors include recent break up and financial. Patient is on a 1:1 for recent provactive SA attempt by wrapping bra around neck. Patient has contracted for safety while on the unit. Mood stable. Looking forward to assisting Madhavi with mental health.
[2016-12-02 20:04] VITALS: BP 111/76
--- NOTE | 2016-12-02 21:07 | NUR ---
PT IS ISOLATIVE AND WITHDRAWN, REMAINING IN BED FOR MAJORITY OF EVENING. MINIMAL INTERACTION WITH PEERS AND STAFF. AT 1600 VITALS, PT DISCLOSED SI BUT REPORTS NO PLAN OR INTENTION TO HURT SELF WHILE ON UNIT. SITTER IN PLACE FOR SAFETY. NO COMPLAINTS REPORTED. PT HAS AN ANXIOUS MOOD AND FLAT AFFECT.
--- NOTE | 2016-12-03 05:53 | NUR ---
1: 1 MAINTAINED. PATIENT ANXIOUS WITH + AH- PT HAS AGREED TO COME TO STAFF IF OVERWHELMED. TRAZADONE 50 PRN X 2, AND SEROQUEL 50 PRN AT 0215. PT SLEPT AFTER.
[2016-12-03 07:52] VITALS: BP 94/59
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
--- NOTE | 2016-12-03 11:42 | NUR ---
PT IS ISOLATIVE AND WITHDRAWN TO PT ROOM & HAS BEEN ASLEEP IN BED FOR MOST OF MORNING SHIFT. PT ASKED TO TALK TO THIS MHW AND STATED THAT SHE WAS "HEARING THE VOICE OF A MAN THAT IS REALLY SCARY". PT IS EXHIBITING ATTENTION SEEKING BEHAVIORS. VS ARE STABLE AND DENIES ANY SI/HI TO THIS MHW.
[2016-12-03 12:29] VITALS: BP 106/68
[2016-12-03 15:32] VITALS: BP 102/61
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
[2016-12-03 20:08] VITALS: BP 115/64
--- NOTE | 2016-12-03 21:23 | NUR ---
PT HAS BEEN ISOLATIVE AND WITHDRAWN FOR MAJORTIY OF EVENING. TOWARDS END OF SHIFT PT WAS MORE VISIBLE ON UNIT AND WAS SOCIALIZING WITH PEERS. ATTENDED WRAP UP MEETING THIS EVENING. REMAINS ON 1:1 SITTER FOR SAFETY. COOPERATIVE AND COMPLIANT WITH STAFF. NO COMPLAINTS OR SI REPORTED. PT HAS A ANXIOUS MOOD AND LABILE/FLAT AFFECT.
--- NOTE | 2016-12-04 05:24 | NUR ---
1:1 MAINTAINED. TRAZADONE 50 PRN AT 0150, ZYPREXA 2.5 PRN AT 0150. PT SLEPT AFTER.
[2016-12-04 08:10] VITALS: BP 121/67
[2016-12-04 12:45] VITALS: BP 121/70
--- NOTE | 2016-12-04 13:26 | NUR ---
PT HAS BEEN COMPLIANT AND COOPERATIVE. 1:1 STATUS MAINTAINED FOR SAFETY. PT DENIES SI AT THIS TIME, NO COMPLAINTS OFFERED. PT HAS BEEN PRESENT MORE ON THE UNIT TODAY, BUT HAS MINIMAL INTERACTION WITH OTHERS. NO AH REPORTED, PT DOES NOT APPEAR TO BE RESPONDING TO INTERNAL STIMULI. PT IS ATTENDING GROUPS. VITALS ARE STABLE, APPETITE IS GOOD.
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
--- NOTE | 2016-12-04 15:31 | SOCIAL WORKER PROG NOTE PSYCH ---
Social Work Progress Note Progress Note Madhavi's continuing to have a difficult time. She shared that she is feeling very depressed. She is still hearing the voice and the voice is telling her to "finish what you started." This statement is referring to suicide. She told me that she was thinking of cheeking her meds and then stashing them in her room to kill herself. She shared that she told this to Rola Bey APRN. She asked for my assistance is contacting her employer [employer]. She signed a release and I called in her presence. Shankar Hernandez gave me the number for human resources: . We tried calling but there was a long wait. Waited about 12 minutes and then hung up. Encouraged her to call tomorrow if she felt up to it. She talked earlier about going to groups. I reminded her that she hasn't given up yet and that she was showing that by her motivation to go to groups and participate. Encouraged her to take a moment at a time and that this will pass.
[2016-12-04 16:07] VITALS: BP 124/72
--- NOTE | 2016-12-04 18:25 | IP INCIDENTAL NOTE PSYCH ---
Incidental Note Notation: Received collateral from Joselyn Magana APRN of [facility]. Per collateral, patient was recently discharged to [facility] from [facility]. She has been having a difficulty time coping with her son's recent return home (DCF had been involved). Per [employer], patient with no previously reported history of AH; history positive for prior suicide attempts. Presentation primarily depresseed/anxious. Suspicion for underlying Bipolar disorder and borderline traits. Current meds: Effexor XR 225mg daily Trazodone 50mg 2-3tabs at bedtime prn Seroquel XR 400mg at bedtime Seroquel 100mg BID prn Goff ER 450mg BID Klonopin 0.5mg TID prn
[2016-12-04 20:05] VITALS: BP 101/67
--- NOTE | 2016-12-04 21:49 | NUR ---
PT IS CALM, COOPERATIVE WITH STAFF AND PEERS, AND COMPLIANT WITH UNIT RULES. PT IS OFTEN IS BOTH IN AND OUT OF MILIEU. WHILE IN MILIEU, PT REMAINS IN THE PERIPHERY, WITH LIMITED INTERACTION WITH OTHERS. MOOD IS STABLE, AFFECT IS EUTHYMIC, APPEARS ANXIOUS, COMMUNICATION IS ORGANIZED AND APPEARS NORMAL IN ALL RESPECTS, AND APPETITE IS NORMAL. PT DENIES SI AT THIS TIME.
--- NOTE | 2016-12-05 06:26 | NUR ---
PATIENT WAS AWAKE AT 0200, ANXIOUS, WITH RACING THOUGHTS; SHE WAS GIVEN PRN ZYPREXA 2.5 AND HER REPEAT DOSE OF TRAZODONE 50MG WITH GOOD EFFECT; SHE SLEPT THE REST OF THE NIGHT WITH 1:1 SITTER MONITORING AT ALL TIMES; NO SELF HARM GESTURES NOTED; MOUTH CHECK COMPLETED WITH MED ADMINISTRATION AND NO ATTEMPT AT CHEEKING SEEN.
[2016-12-05 07:54] VITALS: BP 103/75
--- NOTE | 2016-12-05 11:18 | CP SOUTH PROGRESS NOTE PSYCH ---
Psych (Inpt) Progress Note Progress Note Include the following elements, when applicable: Involvement in the active treatment of the patient with behavioral observations of the patient and the patient's response to the treatment. Review of the ongoing treatment process in the context of the treatment plan. Indication of how multi-disciplinary staff members are carrying out the treatment plan. Plans for future interventions and recommendations for revision of the treatment plan. Liaison with other physicians/providers. Progress Note: Pt notes that she is "trying to get there." She notes she attended to ADLs today in an effort to feel a bit better. She notes continued cAHs to kill herself, increasing at night when she is alone in bed. She feels that they have decreased with meds but still persist. She denies SI or HI but "he just keeps telling me to hurt myself." Current Medications Sig/Sixto Start time Last Medication Dose Route Stop Time Status Admin Aripiprazole 2 MG Q4H PRN 12/04 1730 CAN PO Clonazepam 0.5 MG 0800,1300,12/03 1600 DC 12/04 PO 12/10 1559 1235 Hydroxyzine HCl 50 MG Q6-PRN PRN 12/05 1000 AC 12/05 PO 0956 [place] Carbonate 450 MG 0800,12/02 PO 0755 Lorazepam 0.5 MG 0800,1300 12/05 0800 CAN PO 12/12 0759 Lorazepam 1 MG 12/04 220 CAN PO Lorazepam 1 MG 0800,1400,12/04 PO 0756 Nicotine 14 MG 12/03 1430 12/05 TOP 0755 Olanzapine 10 MG 12/05 2200 AC PO Olanzapine 5 MG 0800,1300 12/05 0800 AC 12/05 PO 0755 Olanzapine 7.5 MG 12/04 2200 DC 12/04 PO 2130 Olanzapine 5 MG 0800,1300,12/03 1300 DC 12/04 PO 1235 Olanzapine 2.5 MG Q4P PRN 12/03 1215 12/05 PO 0956 Trazodone HCl 50 MG AT BEDTIME NEED.. 12/02 1915 AC 12/05 PO 0200 Venlafaxine HCl 75 MG 0800,1700 12/04 1700 AC 12/05 PO 0755 Laboratory Tests 12/04 0619 Toxicology [place] (0.6 - 1.2 mmol/L) 0.6 Vital Signs Date Time Temp Pulse Resp B/P B/P Pulse O2 O2 Flow FiO2 Mean Ox Delivery Rate 12/05 753 97.8 90 103/75 12/04 2004 97.9 91 101/67 12/04 1607 78 124/72 12/04 1245 73 121/70 MSE Appears as stated age. Cooperative behavior, good, appropriate eye contact. Nl speech rate and prosody. ++ psychomotor retardation. Mood trying Affect depressed, constricted, appropriate, non-liable. Linear and goal directed thought process. Denies SI or HI. Does not appear to be responding to internal stimuli. +AHs + cAHs of man telling her to kill herself, paranoia, or delusions. I/J: limited A/P: Pt with hx of PTSD, Bipolar disorder and now with cAHs to kill herself. - Increase zyprexa from 5mg/5mg/7.5mg to 5mg/5mg/10mg - Added hydroxyzine PRN anxiety, has zyprexa PRNs - Otherwise continue current regimen
[2016-12-05 12:13] VITALS: BP 110/68
--- NOTE | 2016-12-05 13:03 | NUR ---
PT REMAINS ON 1:1 FOR SI RISK. PT DID DENIES SI THOOUGHTS THIS MORNING. PT IS OUT IN THE COMMUNITY INTERACTING WELL [facility] STAFF AND PEERS. PT MOOD IS STABLE WITH A FULL RANGE AFFECT. PT IS NOT TEARFUL ON THIS SHIFT. PT IS ATTENDING GROUPS.
[2016-12-05 15:39] VITALS: BP 114/67
--- NOTE | 2016-12-05 18:22 | NUR ---
PT REMAINS ON 1:1 FOR SI SAFTEY. PT DENIED SI THOUGHTS AT 1600 VITALS. PT HAS BEEN OUT IN THE COMMUNITY INTERACTING WELL WITH STAFF AND PEERS. PT GOT TEARFUL AT ONE POINT DURING EVENING SHIFT, BECAUSE OF HER ANXIETY. PT MOOD IS NOW STABLE WITH A FULL RANGE AFFECT.
[2016-12-05 20:05] VITALS: BP 100/64
--- NOTE | 2016-12-06 01:34 | NUR ---
PATIENT GIVEN PRN ZYPREXA 2.5 AND TRAZODONE 50MG FOR ANXIETY, RACING THOUGHTS; PATIENT TEARFUL.
--- NOTE | 2016-12-06 05:09 | NUR ---
PATIENT HAS BEEN SLEEPING SINCE PRN TYLENOL ORDER GIVEN; 1:1 SITTER MONITORING.
[2016-12-06 07:58] VITALS: BP 119/70
--- NOTE | 2016-12-06 12:10 | CP SOUTH PROGRESS NOTE PSYCH ---
Psych (Inpt) Progress Note Progress Note Include the following elements, when applicable: Involvement in the active treatment of the patient with behavioral observations of the patient and the patient's response to the treatment. Review of the ongoing treatment process in the context of the treatment plan. Indication of how multi-disciplinary staff members are carrying out the treatment plan. Plans for future interventions and recommendations for revision of the treatment plan. Liaison with other physicians/providers. Progress Note: Pt notes that had difficulty yesterday as carlos voice cAHs were screaming at her. Feels great distress and out of control. She does note that zyprexa is helpful and that "thoughts are slowing down." Notes passive SI. Current Medications Sig/Sixto Start time Last Medication Dose Route Stop Time Status Admin Acetaminophen 650 MG ONCE ONE 12/06 0400 DC 12/06 PO 12/06 040 0359 Hydroxyzine HCl 50 MG Q6-PRN PRN 12/05 1000 AC 12/06 PO 0651 [place] Carbonate 450 MG 08,12/02 AC 12/06 PO 0740 Lorazepam 1 MG 0800,1400,12/04 AC 12/06 PO 0742 Nicotine 14 MG 12/03 1430 AC 12/06 TOP 0740 Olanzapine 7.5 MG DAILY AC 12/07 0700 AC PO Olanzapine 15 MG 12/06 2200 AC PO Olanzapine 5 MG 1300 12/06 1300 AC PO Olanzapine 2.5 MG ONCE ONE 12/06 1200 DC 12/06 PO 12/06 1201 1156 Olanzapine 10 MG 12/05 2200 DC 12/05 PO 2157 Olanzapine 5 MG 0800,1300 12/05 0800 DC 12/06 PO 0651 Olanzapine 2.5 MG Q4P PRN 12/03 1215 AC 12/06 PO 1129 Trazodone HCl 50 MG AT BEDTIME NEED.. 12/02 1915 AC 12/06 PO 0121 Venlafaxine HCl 75 MG 0800,1700 12/04 1700 AC 12/06 PO 0740 Laboratory Tests 12/04 0619 Toxicology [place] (0.6 - 1.2 mmol/L) 0.6 Vital Signs Date Time Temp Pulse Resp B/P B/P Pulse O2 O2 Flow FiO2 Mean Ox Delivery Rate 12/06 757 97.9 75 119/70 12/05 2004 98.4 78 100/64 12/05 1539 80 114/67 12/05 1213 72 110/68 MSE Appears as stated age. Cooperative behavior, good, appropriate eye contact. Nl speech rate and prosody. Less psychomotor retardation. Mood it got so bad yesterday Affect depressed, constricted, appropriate, non-liable. Linear and goal directed thought process. Denies SI or HI. Does not appear to be responding to internal stimuli. +AHs + cAHs of man telling her to kill herself, sometimes screaming at her, denied paranoia, or delusions. I/J: limited A/P: Pt with hx of PTSD, Bipolar disorder and with cAHs to kill herself. - Cont 1:1 - Increase zyprexa to 7.5mg/5mg/15mg given significant distress from cAHs to kill self - Continue hydroxyzine PRN anxiety, has zyprexa PRNs - Otherwise continue current regimen
[2016-12-06 12:21] VITALS: BP 141/72
--- NOTE | 2016-12-06 13:40 | NUR ---
has a lost look on face at times. Asking for and receiving PRN's for voices. mood is stable, flat affect most of the time. alternates between community and lying in bed. denied thoughts of self harm when asked
[2016-12-06 15:49] VITALS: BP 112/63
[2016-12-06 20:10] VITALS: BP 139/94
--- NOTE | 2016-12-06 22:29 | NUR ---
PT IS ON 1:1 OBSERVATION FOR SAFETY. PRESENTS ALERT AND ORIENTED X3. PT IS SOCIALABLE WITH PEERS AND STAFF. ATTENDED EVENING GROUP WITH FULL PARTICIPATION. NO MAJOR CONCERNS TO REPORT.
--- NOTE | 2016-12-07 04:27 | NUR ---
PATIENT HAS SLEPT FOR SHORT INTERVALS; PATIENT AGAIN WOKE AT 0118 THIS SHIFT, AND WAS GIVEN PRN ZYPREXA FOR RACING THOUGHTS AND PRN TRAZODONE (REPEAT DOSE); AT 0400 PATIENT WAS AGAIN AWAKE, AND IS SITTING IN LOUNGE COLORING; 1:1 SITTER MONTIORING AT ALL TIMES.
[2016-12-07 08:20] VITALS: BP 134/73
--- NOTE | 2016-12-07 09:00 | NUR ---
PATIENT HAS BEEN SCRATCHING ANTERIOR ASPECT OF LEFT WRIST. rEPORTS THAT IT HELPS WHEN SHE FEELS ANGRY OR ANXIOUS. ENCOURAGED HER TO TALK WITH STAFF AND USE PRN's FOR ASS SITANCE WITH COPING. SKIN IS A LITTLE RED, INTACT
[2016-12-07 12:11] VITALS: BP 130/68
--- NOTE | 2016-12-07 13:39 | NUR ---
PT IS COMPLIANT AND COOPERATIVE. MOOD IS STABLE WITH A FLAT AFFECT- PT APPEARS DEPRESSED AND CAN BE TEARFUL AT TIMES. 1:1 STATUS MAINTAINED FOR SAFETY AND +SI. PT ADMITTED TO W THAT SHE HAD BEEN SCRATCHING AT HER ARMS BUT DID NOT HAVE ANY FURTHER PLANS TO HARM SELF HERE- SITTER AWARE TO WATCH FOR THIS BEHAVIOR. PT HAS BEEN PRESENT ON THE UNIT AT TIMES AND INTERACTING WITH PEERS AND STAFF. PT REPORTS SOME AH, BUT STATES IT HAS QUIETED. PT HAS ATTENDED MOST GROUPS. VITALS ARE STABLE, APPETITE IS GOOD.
--- NOTE | 2016-12-07 15:30 | CP SOUTH PROGRESS NOTE PSYCH ---
Psych (Inpt) Progress Note Progress Note Include the following elements, when applicable: Involvement in the active treatment of the patient with behavioral observations of the patient and the patient's response to the treatment. Review of the ongoing treatment process in the context of the treatment plan. Indication of how multi-disciplinary staff members are carrying out the treatment plan. Plans for future interventions and recommendations for revision of the treatment plan. Liaison with other physicians/providers. Progress Note: I discussed this patient's progress to date, current mental status, treatment process in the context of the treatment plan, and discharge planning with staff/ team in the daily morning inpatient team meeting. I also met with the patient myself in individual session. OBJECTIVE: Current Medications Sig/Sixto Start time Last Medication Dose Route Stop Time Status Admin Hydroxyzine HCl 50 MG Q6-PRN PRN 12/05 1000 AC 12/06 PO 2223 [place] Carbonate 450 MG 08,12/02 AC 12/07 PO 0906 Lorazepam 1 MG 0800,1399,12/04 AC 12/07 PO 1250 Nicotine 14 MG 12/03 1430 AC 12/07 TOP 0906 Olanzapine 7.5 MG DAILY AC 12/07 0700 AC 12/07 PO 0529 Olanzapine 15 MG 2200 12/06 2200 AC 12/06 PO 2130 Olanzapine 5 MG 1300 12/06 1300 AC 12/07 PO 1250 Olanzapine 2.5 MG Q4P PRN 12/03 1215 AC 12/07 PO 1138 Trazodone HCl 50 MG .STK-MED ONE 12/07 0132 DC PO 12/07 0133 Trazodone HCl 50 MG AT BEDTIME NEED.. 12/02 1915 AC 12/07 PO 0138 Venlafaxine HCl 75 MG 0800 12/08 0800 UNVr PO Venlafaxine HCl 75 MG 0800,1700 12/04 1700 DC 12/07 PO 0906 Vital Signs Date Time Temp Pulse Resp B/P B/P Pulse O2 O2 Flow FiO2 Mean Ox Delivery Rate 12/07 1211 83 130/68 12/08 819 97.5 81 134/73 12/06 2009 98.6 86 139/94 12/06 1549 87 112/63 ASSESSMENT: Chart, progress note, VS, labs, and medication list were reviewed. Zyprexa was increased over the weekend to 7.5mg QAM/5mg Q1PM/ 15mg QHS for intense AH to kill self and others. Between scheduled and prn Zyprexa, patient received a total of 35mg yesterday. Patient remains on 1:1 ATC for safety to self/others. Patient's progress to date was discussed with nursing staff who reported that patient was visible in milieu today, bright, smiling and selectively attending groups. Nursing did not report patient to appear internally preoccupied or to show any acute distress. Met with patient this afternoon, together with Joy Wisdom LCSW. Patient presented A&Ox3. Speech was normal in rate, tone and volume. Affect constricted. Mood dysphoric. Depression: 10/10 (10 being the worst). Anxiety: 8-9/10 (10 being the worst). Reported continued +CAH to harm herself and others. Reported SI with plans to stockpile pills and OD or use a phone cord to strangle self. Denied SI intent. Gave safety promise on unit. Denied HI intent, plans. Denied + CAH is telling her to harm anyone particularly. She reported scratching her arm yesterday d/t distress caused by AH. She denied behavior was a suicidal attempt. She denied VH, PI. No evidence of delusions. Pt did not appear to be responding to internal stimuli. Thought process was linear. Cognition grossly intact. Patient reported tolerating medications well, denied untoward medication effects. Reviewed case with Dr. Ogden, who recommended temporarily adjuncting Zyprexa with low dose prn Trilafon or Haldol to further target CAH. Reviewed the risk/benefit/SE profiles of Trilafon with patient, including risks of irreversible movement disorders, metabolic syndrome with weight gain, diabetes, hypertension, and hyperlipidemia. Patient verbalized understanding and was agreeable to prn trial. Also informed patient that I would order prn Cogentin to counter any occurence of muscle stiffness. PLAN: 1. Continue 1:1 sitter ATC for safety to self/others. 2. Continue standing Zyprexa 27.5mg daily in divided doses. 3. Discontinue prn Zyprexa. Start Trilafon 2mg Q4H prn for agitation/ hallucinations. Start Cogentin 1mg Q4H prn for muscle stiffness. If AH are improved will consider switch to Trilafon. 4. Continue other psych meds. 5. Dispo planning per primary team.
[2016-12-07 16:16] VITALS: BP 135/80
--- NOTE | 2016-12-07 16:57 | SOCIAL WORKER PROG NOTE PSYCH ---
Social Work Progress Note Progress Note Madhavi met with Rola Bey APRN and I together this afternoon. She reports that the weekend was long and difficult, due to less structure. She reported that the voices have calmed down, but then she went on to report that she was still hearing the male voice who is telling her distressing things. The voice continues to tell her to get the phone cord and kill herself or use her blanket. The voice also says things about others on the unit and how she should kill them. She stated she would not act on that thought. Even without the voice being present, she is depressed with SI. Patient was scratching her wrist over the weekend to relieve anxiety. She has a history of cutting. She was engaging in this behavior about a month or two ago. I asked if she has ever heard of DBT therapy? She said no. I mentioned that [facility] has a DBT program. She stated she really wanted to remain with [facility] because she was comfortable there and that helps her go. She continues to refuse a meeting with her Mom, even by phone. She is only open to a meeting with her cousin Supriya. She would like to continue to follow up with the short term disability application. She is hoping we can help her do it online. I told her I would work with her on it tomorrow.
[2016-12-07 19:53] VITALS: BP 119/67
--- NOTE | 2016-12-07 21:55 | NUR ---
LATE ENTRY: PERMISSION WAS OBTAINED FROM DR. DHALIWAL FOR THIRD TRAZODONE DOSE GIVEN ON 12/07/16 AT 0130.
--- NOTE | 2016-12-07 22:25 | NUR ---
PT IS COOOPERATIVE WITH STAFF AND PEERS AND COMPLIANT WITH UNIT RULES. PT IS BOTH IN AND OUT OF MILIEU, RETURNING TO PT ROOM WHEN SHE FEELS OVERSTIMULATED BY THE NOISE IN MILIEU. MOOD IS STABLE, AFFECT IS EUTHYMIC, APPEARS ANXIOUS AT TIMES, COMMUNICATION IS ORGANIZED AND APPEARS NORMAL IN ALL RESPECTS, AND APPETITE IS NORMAL. PT DENIES SI AT THIS TIME.
--- NOTE | 2016-12-08 05:34 | NUR ---
PATIENT SLEPT POORLY, RESTLESS DUE TO LOUNG ANGRY AUDITORY HALLUCINATION WAKING HER UP; AWAKE MULTIPLE TIMES DURING THE NIGHT; PRN TRILAFON GIVEN AT 1912 AND 2340; PRN TRAZODONE GIVEN AT 2145 AND 0136; PATIENT ANXIOUS, TEARFUL, UP IN LOUNGE COLORING AFTER 0500.
[2016-12-08 07:49] VITALS: BP 110/60
--- NOTE | 2016-12-08 08:24 | CP SOUTH PROGRESS NOTE PSYCH ---
Psych (Inpt) Progress Note Progress Note Include the following elements, when applicable: Involvement in the active treatment of the patient with behavioral observations of the patient and the patient's response to the treatment. Review of the ongoing treatment process in the context of the treatment plan. Indication of how multi-disciplinary staff members are carrying out the treatment plan. Plans for future interventions and recommendations for revision of the treatment plan. Liaison with other physicians/providers. Progress Note: I discussed this patient's progress to date, current mental status, treatment process in the context of the treatment plan, and discharge planning with staff/ team in the daily morning inpatient team meeting. I also met with the patient myself in individual session. OBJECTIVE: Current Medications Sig/Sixto Start time Last Medication Dose Route Stop Time Status Admin Benztropine Mesylate 1 MG Q4 HRS NEEDED PRN 12/07 1800 AC PO Hydroxyzine HCl 50 MG Q6-PRN PRN 12/05 1000 AC 12/07 PO 1804 [place] Carbonate 450 MG 799,12/02 AC 12/08 PO 0751 Lorazepam 1 MG 0800,1399,12/04 AC 12/08 PO 0752 Nicotine 14 MG 12/03 1430 AC 12/08 TOP 0751 Olanzapine 7.5 MG 1300 12/08 1300 DC PO Olanzapine 5 MG 1300 12/08 1300 AC PO Olanzapine 7.5 MG DAILY AC 12/07 0700 AC 12/08 PO 0611 Olanzapine 15 MG 12/06 2200 AC 12/07 PO 2144 Olanzapine 5 MG 12/06 1300 DC 12/07 PO 1250 Olanzapine 2.5 MG Q4P PRN 12/03 1215 DC 12/07 PO 1716 Perphenazine 2 MG Q4 HRS NEEDED PRN 12/07 1800 AC 12/07 PO 2340 Trazodone HCl 50 MG AT BEDTIME NEED.. 12/02 1915 AC 12/08 PO 0136 Venlafaxine HCl 75 MG 0812/08 0800 AC 12/08 PO 0751 Venlafaxine HCl 75 MG 0800,1700 12/04 1700 DC 12/07 PO 0906 Vital Signs Date Time Temp Pulse Resp B/P B/P Pulse O2 O2 Flow FiO2 Mean Ox Delivery Rate 12/08 0649 98.0 85 110/60 12/07 1952 98.9 92 119/67 12/07 1616 88 135/80 12/07 1211 83 130/68 ASSESSMENT: Chart, progress notes, VS, rpt EKG, and medication list were reviewed. VS within normal limits. Patient remains on 1:1 ATC for safety to self/others. Met with patient this morning. A&Ox3. Speech normal in rate, tone and volume. Eye contact appropriate. Mood "horrible." Affect mostly constricted, non-labile. Sleep poor, frequent night time awakenings. Appetite stable. She reports +CAH to harm herself and others are largely unchanged despite trial of prn Trilafon and continued Zyprexa. She reports hearing "repetative remarks...to not swallow my meds, and violent remarks to strangle other patients." She also reported that during dinner the other night she had a thought to "cut the throat of another patient with a plastic knife." Nursing staff was notified of this immediately and patient was ordered to only have finger foods for safety to self and others. She reports continued superficial scratching to arm for "release." She continues to endorse SI with plans to "strangle myself with the phone cord" or "smother myself with a pillow." She denied intent. She endorsed HI toward no one particular today, denied plans or intent. She reported feeling safe on unit and gave safety promise while on unit. She denied VH, PI. No evidence of delusions. Thought process linear. Thought content anxious. Cognition grossly intact. PLAN: 1. Continue 1:1 sitter ATC for safety to self/others; continue mouth checks after every med administration. 2. Continue scheduled Zyprexa as ordered. Continue prn Trilafon as ordered for CAH. 3. Increase [place] CR from 450mg BID to 450mg QAM and 600mg QHS for mood stabilization. Rpt Li level scheduled 12/11/16 at 0600. 4. Decrease Ativan from 1mg TID to 1mg BID and 0.5mg at 1PM today, then 1mg BID tomorrow. Will continue to taper. 5. Continue prn atarax for anxiety. 6. Finger foods ONLY Qmeal for safety to self/others. 7. Effexor XR 75mg daily and prn Trazodone QHS discontinued d/t ? activation. 8. Will add Melatonin 5mg QHS prn for insomnia. 9. Dispo planning per primary team.
--- NOTE | 2016-12-08 08:53 | SOCIAL WORKER PROG NOTE PSYCH ---
Social Work Progress Note Progress Note Called Madhavi's DCF worker [phone]. Jorge mentioned that when she has spoken with family in the past, they have all stated she is very dependent on them and can do little for herself. With her boyfriend now gone, she feels she is struggling at home. She would like to offer her assistance with things, but she needs her to tell her what she needs. I asked if she would like to see her here? She said she would and that she can be available to see her tomorrow at noon. I told her that she has been on a one to one here, due to command auditory hallucinations telling her to kill herself or others. This was the first time, she had heard of these symptoms with Madhavi. Madhavi and I tried calling [facility] again about getting short term disability. We were on hold for over 20 mins. The sitter proceeded to wait with her for someone to worm picker. Madhavi was told that her DCF worker will be here tomorrow to meet with her. She stated the only thing that she could really use right now is help in reapplying for food stamps. She reported issues around sleep today, stating she was up most of the night due to racing thoughts and hearing the voice. Didn't have much difficulty with voices today. She was upset to hear that she only can have finger foods. I reiterated that due to her hearing a voice about using plastic utensils to hurt another peer we need to make sure that doesn't happen. She stated she feels bad about it and that she would never hurt anyone. I told her it wasn't a judgement on her, but that we need to ensure safety and we would be negligent not to respond to ensure safety for her and others on the unit. She states she was feeling more depressed today. Anxiety seems less. She rates it at a 4 (1-10 10 being worst). Madhavi was able to get the short term disability forms faxed to me to be filled out.
[2016-12-08 12:15] VITALS: BP 128/78
--- NOTE | 2016-12-08 13:18 | NUR ---
Patient is present in the community A&O X 3, compliant with medication and group therapies. Patient continues on 1:1 sitter monitor due to thought of self-harm by overdosing on her medication, she is also on mouth check due to the thought. Patient has been found to be labile/tearful reporting that the AH refuses to go away and is very peturbing increases to her anxiety. Patient has been given one PRN bec ause of the AH waiting to be evaluated for any positive effect.
--- NOTE | 2016-12-08 14:01 | NUR ---
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 PT IS PLACED ON FINGER FOODS ONLY. SITTER INFORMED. PT OVERHEARD COMPLAINING TO HER PEERS THAT SHE WAS BEING PUNISHED AND SHE WAS REMINDED THAT WE NEED TO KEEP HER AND EVERYONE SAFE
[2016-12-08 16:33] VITALS: BP 126/73
[2016-12-08 20:11] VITALS: BP 120/77
--- NOTE | 2016-12-08 21:10 | NUR ---
PT IS COOPERATIVE WITH STAFF AND PEERS, AND COMPLIANT WITH UNIT RULES. PT IS SPENDING TIME BOTH IN AND OUT OF MILIEU. WHILE IN MILIEU PT IS ENGAGING IN SOMEINTERACTION WITH OTERS. MOOD IS STABLE, AFFECT IS EUTHYMIC TO FULL RANGE, APPEARS ANXIOUS AT TIMES, COMMUNICATION IS ORGANIZED AND APPEARS NORMAL IN ALL RESPECTS, AND APPETITE IS NORMAL. PT DENIES SI AT THIS TIME.
--- NOTE | 2016-12-09 05:45 | NUR ---
PT ON 1:1. PT WITH PRNs TO ASSIST WITH SLEEP. PT SLEPT UNTIL 0130. PT RECEIVED 2MG TRILAFON AND THEN SLEPT UNTIL 0500. PT ANXIOUS UPON AWAKENING. PT AGREES TO BE SAFE.
[2016-12-09 07:40] VITALS: BP 123/65
--- NOTE | 2016-12-09 08:50 | CP SOUTH PROGRESS NOTE PSYCH ---
Psych (Inpt) Progress Note Progress Note Include the following elements, when applicable: Involvement in the active treatment of the patient with behavioral observations of the patient and the patient's response to the treatment. Review of the ongoing treatment process in the context of the treatment plan. Indication of how multi-disciplinary staff members are carrying out the treatment plan. Plans for future interventions and recommendations for revision of the treatment plan. Liaison with other physicians/providers. Progress Note: I discussed this patient's progress to date, current mental status, treatment process in the context of the treatment plan, and discharge planning with staff/ team in the daily morning inpatient team meeting. I also met with the patient myself in individual session. OBJECTIVE: Current Medications Sig/Sixto Start time Last Medication Dose Route Stop Time Status Admin Acetaminophen 650 MG Q6P PRN 12/09 0745 AC PO Acetaminophen 650 MG ONCE ONE 12/09 1999 DC PO 12/08 2000 Benztropine Mesylate 1 MG Q4 HRS NEEDED PRN 12/07 1800 AC PO Hydroxyzine HCl 50 MG Q6-PRN PRN 12/05 1000 AC 12/08 PO 2226 [place] Carbonate 450 MG 0800 12/09 0800 AC 12/09 PO 0825 [place] Carbonate 600 MG 12/08 AC 12/08 PO 2225 [place] Carbonate 450 MG 0800,12/02 DC 12/08 PO 0751 Lorazepam 1 MG 0800,12/08 AC 12/09 PO 0825 Lorazepam 0.5 MG 1400 12/08 1400 DC 12/08 PO 12/08 1401 1443 Lorazepam 1 MG 0800,1400,12/04 DC 12/08 PO 0752 Melatonin 5 MG AT BEDTIME PRN 12/08 1845 AC 12/08 PO 2226 Nicotine 14 MG 12/03 1430 AC 12/09 TOP 0825 Olanzapine 5 MG 1300 12/08 1300 AC 12/08 PO 1238 Olanzapine 7.5 MG DAILY AC 12/07 0700 AC 12/09 PO 0617 Olanzapine 15 MG 12/06 220 AC 12/08 PO 2226 Perphenazine 2 MG Q4 HRS NEEDED PRN 12/07 1800 AC 12/09 PO 0139 Trazodone HCl 50 MG AT BEDTIME NEED.. 12/02 1915 DC 12/08 PO 0136 Venlafaxine HCl 75 MG 00 12/08 0800 DC 12/08 PO 0751 Vital Signs Date Time Temp Pulse Resp B/P B/P Pulse O2 O2 Flow FiO2 Mean Ox Delivery Rate 12/10 739 98.3 79 123/65 12/08 2010 99.2 100 120/77 12/08 1633 100 126/73 12/08 1215 84 128/78 Laboratory Tests 12/09/16 0514: Triglycerides 176 H, Cholesterol 114, LDL Cholesterol, Calc 28 L, HDL Cholesterol 51, Cholesterol/HDL Ratio 2 ASSESSMENT: Chart, progress notes, VS, labs and medication list were reviewed. HR mildly tachy last evening with low-grade temp. BP within normal limits. This morning all vital signs are within normal limits. Lipid panel reviewed. Met with patient at 8:30AM. She shared that she is feeling "the effects of being off of Effexor...aches and shocks in my body." She initially described +AH remained largely unchanged; but when asked about its intensity she reported it as a 5/10 (10 being most intense). She reported its intensity from yesterday was a 7/10 (10 being most intense). Today, she denied +AH to be command in nature. She denied +AH has told her to harm herself or others. She reported that +AH is now "only saying stupid things...laughing at me...calling other people names...asking me why I sit in certain places." She denied visual hallucinations and paranoid ideation. She reported improved sleep last night, despite occasional night time awakenings. Reported being awakened by voice once at 1: 30AM after voice told her "wake up." She reported returning to sleep after. Despite being on 1:1, she continues to scratch forearm. She reported doing this while in the bathroom to self-soothe. Denied scratching was with suicidal intent. She denied passive and active suicidal ideation, plans and intent. She denied homicidal ideation. Thought process was linear. Thought content anxious. Cognition grossly intact. Judgement and insight limited. Patient making slow progress, continues to tolerate medications without untoward effects. PLAN: 1. Continue 1:1 ATC for safety to self/others. 2. Continue finger foods Qmeal for safety to self/others. 3. Continue Ativan taper as ordered. 4. Li level scheduled 5/5/17 at 0600. 5. Will restart Effexor XR 37.5mg QAM x 2 days to counter w/d effects, then d/c. 6. Continue scheduled Zyprexa and prn Trilafon as ordered. AH slowly improving. Reevalate benefit of switching from Zyprexa to Trilafon. 7. Dispo planning per primary team.
--- NOTE | 2016-12-09 12:06 | NUR ---
PT IS PRESENT WITHIN THE COMMUNITY, ATTENDED GROUPS, MOOD STABLE WITH FULL RANGE AFFECT, NO ISSUES OR COMPLAINTS REPORTED OR OBSERVED, 1:1 MAINTAINED FOR SAFETY, VITAL SIGNS STABLE, REPORTED + SLEEP BUT - MOOD AND GOAL FOR THE DAY WAS TO "WORK ON STABALIZING MOOD".
[2016-12-09 12:08] VITALS: BP 118/68
[2016-12-09 15:55] VITALS: BP 129/76
--- NOTE | 2016-12-09 17:19 | SOCIAL WORKER PROG NOTE PSYCH ---
Social Work Progress Note Progress Note Madhavi's DCF worker Jorge came to see Madhavi this afternoon. I caught the end of the meeting with them. Madhavi is in agreement for us to set up VNS for prepour's of her meds with check in's a couple times a week. She is not in agreement for daily driver medic, because she doesn't feel that she needs it. Jorge asked if Madhavi was capable of starting to participate in family treatment planning meetings with her son. I said I thought she was capable. She will be scheduling that soon. Madhavi told me that her symptoms were less today and that the voice was calmer. She still looked a little anxious. She said that she was going to take a PRN.
[2016-12-09 20:04] VITALS: BP 136/77
--- NOTE | 2016-12-10 00:20 | NUR ---
SITTER IN ATTENDANCE, PT QUIET AND IN FULL VIEW.
--- NOTE | 2016-12-10 02:06 | NUR ---
OOB TO DESK REPORTING +A/H, TELLING HER WAKE UP. STATES THAT SHE HAS THE SAME VOICE EVERY NIGHT ABOUT 0130. PRN TRILAFON GIVEN AND PT RETURNED TO BED. SITTER WITH PATIENT.
--- NOTE | 2016-12-10 03:57 | NUR ---
1:1 MAINTAINED, SITTER PRESENT AT ALL TIMES. AWAKE AT APPROX. 0130 STATING THAT HER VOICES TOLD HER TO WAKE UP AND THAT IT HAPPENS AT THIS TIME EVERY NIGHT. PRN GIVEN WITH GOOD EFFECT.
--- NOTE | 2016-12-10 04:11 | NUR ---
SLEEPING, MED EFFECTIVE, NO MORE C/O VOICES. SITTER PRESENT.
[2016-12-10 07:57] VITALS: BP 138/87
--- NOTE | 2016-12-10 12:08 | NUR ---
PT IS OUT OF BED MORE TODAY COMPARED TO YESTERDAY, MEDICATION AND TREATMENT COMPLIANT, 1:1 MAINTAINED FOR SAFETY, IN PLANNING MEETING REPORTED + SLEEP AND OK MOOD, GOAL WAS TO SPEAK AND TOUCH BASE TO THE SERVICE ADVISOR. IN FOCUS GROUP REPORTED THAT SHE REALLY MISSES HER CAT & SON AND NOT HEARING COMMAND AH ANYMORE & DOESNT FEEL SHE NEEDS 1:1 EVEN THO SHE "ENJOYS IT", MOOD STABLE WITH FULL RANGE AFFECT.
[2016-12-10 12:19] VITALS: BP 122/78
--- NOTE | 2016-12-10 14:35 | CP SOUTH PROGRESS NOTE PSYCH ---
Psych (Inpt) Progress Note Progress Note Include the following elements, when applicable: Involvement in the active treatment of the patient with behavioral observations of the patient and the patient's response to the treatment. Review of the ongoing treatment process in the context of the treatment plan. Indication of how multi-disciplinary staff members are carrying out the treatment plan. Plans for future interventions and recommendations for revision of the treatment plan. Liaison with other physicians/providers. Progress Note: The patient is a 36-year-old white female admitted on 12/02/16. She carries the diagnosis bipolar disorder, depressed, with psychotic features and PTSD. Medication list reviewed. Case and treatment plan discussed in team meeting. Reportedly has hx CAH to kill herself. On 1:1. On finger foods. Scheduled for a lithium level tomorrow. Patient seen at 1:27 PM. The patient is an ambulatory white woman dressed in shirt and paper scrubs, sitting in a chair in no acute distress. She is calm, polite and cooperative. There is no psychomotor agitation or retardation. Speech is normal in volume, rate and tone. Affect is fragile. Patient reports she is here for suicidal thoughts and for severe depression. Reports her boyfriend had left her/moved out because she had been readmitted to the hospital. She found it difficult to be home and to be alone. Reports DCF is involved with her 14-year-old son. Apparently patient had attempted to overdose while her son was present. Reports that her son has been placed with his paternal aunt. Patient reports talking to her son every day. Patient states that she has a lot on her plate right now, including financial issues. 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 Reports mood is good now but she felt anxious before. States she took p.r.n. Atarax. Rates anxiety about 6/10 and sad mood about 6/10. Feels hopeless but not helpless or worthless. Feels guilty for putting everybody through all of this. Denies active and passive suicidal ideation. Had suicidal thoughts her first few days here and over the weekend. Denies homicidal ideation. Denies hearing voices today. Reports she had very little auditory hallucinations yesterday. Denies visual hallucinations and paranoid ideation. Reports sleep is awful due to middle of the night awakening. Appetite is fine. Energy is low because she feels tired. IMPRESSION: Slow progress. Continue present treatment. Continue one-to-one staffing for safety and reevaluate need for one-to-one tomorrow. Patient reports that she feels worse off of Effexor but she understands that discontinuation of the Effexor maybe have helped to reduce auditory hallucinations. I have changed Ativan dosing from 0.5 mg b.i.d. at 8 AM and 8 PM to 0.5 mg b.i.d. at 12 noon and 2200. Continues to require inpatient level of care. To have lithium level in a.m.
[2016-12-10 16:14] VITALS: BP 122/62
--- NOTE | 2016-12-10 16:59 | SOCIAL WORKER PROG NOTE PSYCH ---
Social Work Progress Note Progress Note Filled out short term disability paperwork for Madhavi and submitted via fax to [facility]. Madhavi looks more hopeful today. She spoke about how she has not had any voices today and she feels very relieved. She is feeling scared that they could come back. She still reports "waves of anxiety" and racing thoughts. She talked about wanting to go home soon. She is feeling responsibile for bills and other things that she has to get done at home. She is thinking of staying with her cousin Supriya for a couple of days once discharged. We called her cousing Supriya to invite her to come in for a meeting tomorrow at 3pm. I don't think Madhavi is particularly happy with the medication she is receiving to help with sleep. She doesn't feel Melatonin is adequate. She stated she slept "like crap ". Asked what she is doing for coping skills besides medication? She said she is journaling and just trying to keep busy. She is interested in going to the gym after leaving the hospital for more excercise. She is getting used to the idea that her boyfriend is no longer living at the house and she is feeling ok with it. Talked about some of the positives of starting new.
[2016-12-10 19:41] VITALS: BP 123/74
--- NOTE | 2016-12-10 20:46 | NUR ---
PT IS CALM, COOPERATIVE WITH STAFF AND PEER,A ND COMPLAINT WITH UNIT RULES. PT IS OFTEN IN [place], INTERACTING WELL WITH OTHERS. MOOD IS STABLE, AFFECT IS EUTHYMIC TO FULL RANGE, CAN AT TIMES APPEAR SLIGHTLY ANXIOUS, COMMUNICATION SI ORGANIZED AND APPEARS NORMAL IN ALL RESPECTS, AND APPETITE IS NORMAL. PT DENIES SI AT THIS TIME.
[2016-12-11 07:21] VITALS: BP 116/67
[2016-12-11 12:18] VITALS: BP 118/74
--- NOTE | 2016-12-11 14:49 | NUR ---
PT REMAINS ONE TO ONE. PT COMPLIANT AND COOPERATIVE. PT ATTENDING GROUPS. MOOD STABLE - FULL RANGE AFFECT. PT APPETITE GOOD. VS WNL. NO COMPLAINTS OFFERED
--- NOTE | 2016-12-11 15:03 | CP SOUTH PROGRESS NOTE PSYCH ---
Psych (Inpt) Progress Note Progress Note Include the following elements, when applicable: Involvement in the active treatment of the patient with behavioral observations of the patient and the patient's response to the treatment. Review of the ongoing treatment process in the context of the treatment plan. Indication of how multi-disciplinary staff members are carrying out the treatment plan. Plans for future interventions and recommendations for revision of the treatment plan. Liaison with other physicians/providers. Progress Note: I discussed this patient's progress to date, current mental status, treatment process in the context of the treatment plan, and discharge planning with staff/ team in the daily morning inpatient team meeting. I also met with the patient myself in individual session. Current Medications Sig/Sixto Start time Last Medication Dose Route Stop Time Status Admin Acetaminophen 650 MG Q6P PRN 12/09 0745 AC PO Benztropine Mesylate 1 MG Q4 HRS NEEDED PRN 12/07 1800 AC PO Hydroxyzine HCl 50 MG Q6-PRN PRN 12/05 1000 AC 12/11 PO 0933 [place] Carbonate 450 MG 12/09 0800 AC 12/11 PO 0933 [place] Carbonate 600 MG 2000 12/08 2000 AC 12/10 PO 1932 Lorazepam 0.5 MG 1200,2200 12/10 2200 AC 12/11 PO 12/17 2159 1149 Melatonin 5 MG AT BEDTIME PRN 12/08 1845 AC 12/10 PO 2133 Nicotine 14 MG 12/03 1430 AC 12/11 TOP 1006 Olanzapine 5 MG DAILY AC 12/12 0700 UNVr PO Olanzapine 5 MG 1300 12/08 1300 AC 12/11 PO 1227 Olanzapine 7.5 MG DAILY AC 12/07 0700 DC 12/11 PO 0610 Olanzapine 15 MG 12/06 2200 AC 12/10 PO 2133 Perphenazine 2 MG Q4 HRS NEEDED PRN 12/07 1800 AC 12/11 PO 0045 Laboratory Tests 12/11/16 0612 : [place] 0.7 Vital Signs Date Time Temp Pulse Resp B/P B/P Pulse O2 O2 Flow FiO2 Mean Ox Delivery Rate 12/11 1218 83 118/74 / 0721 97.8 78 116/67 / 1941 98.1 84 123/74 05/04 1614 86 122/62 ASSESSMENT: Chart, progress notes, labs, VS and medication list were reviewed. [place] level was therapeutic, resulted 0.7. Vital signs within normal limits. Met with patient this afternoon. She presented calmer than in previous encounters. She reported fair energy level. Behavior was calm and cooperative. No evidence of psychomotor retardation or agitation. Speech was average in rate, tone and volume. Mood was "better." Affect was somewhat constricted, non-labile. Anxiety: 3-4/10 (10 being the worst). Depression: 3-4/10 (10 being the worst). She denied passive and active suicidal ideation, plans and intent. She denied homicidal ideation. Denied further self-injurious behaviors on unit. Denied urges to harm self or others. She denied AH and stated this was the 2nd day free of them. She denied VH, PI. There was no evidence of delusions. She reported looking forward to returning home; she misses her cats and house. She also reported feeling relieved since short-term disability paperwork was filed during current hospitalization. She reported some improvement in sleep, approx. 4-5 hours night, but still reports occasional night time awakenings. She reported stable appetite. Insight and judgement slowly improving. Thought process was linear, goal-directed. Cognition was grossly intact. Patient reported tolerating all medications well, denied untoward medication effects. IMPRESSION: Patient making slow progress. Per nursing reports, she is attending groups and maintaining safety x 2 days. Will discontinue 1:1 ATC and finger foods. PLAN: 1.Will continue Ativan as ordered. 2.Will continue Zyprexa and [place] as ordered for AH and mood stabilization. 3.Will add Trazodone 50mg prn QHS for insomnia. Monitor response to medication. 4. Will increase Melatonin from 5mg QHS to 10mg QHS for difficulty staying asleep. 5. Discontinue 1:1 ATC; discontinue finger foods. Will remain in room close to nurses station on routine safety checks.
[2016-12-11 15:51] VITALS: BP 123/72
--- NOTE | 2016-12-11 18:26 | SOCIAL WORKER PROG NOTE PSYCH ---
Social Work Progress Note Progress Note Madhavi's cousin Supriya came in for a family meeting. Madhavi shared that this is day 2 without voices. She was happy to report that she is off one to one. She is still having some problems with sleep though. She also is unhappy with the withdrawal symptoms she feels from not being on the Effexor. I told her that if all goes well over the weekend, we would look at discharge for Wednesday. I tentatively scheduled an IOP intake for her at 11:15am. Madhavi would stay at Supriya's house for a couple of days. Supriya offered to hold and monitor medications. We talked about visiting nurse being set up for later that week when she gets back to her house. This would be to prepour meds for the week and have a couple of check in's. I told her they would probably put the rest of her meds in a lock box. She was fine with that. Apparently she has a bunch of old medications in a lock box at home. I encouraged her to get those disposed of.
[2016-12-11 20:00] VITALS: BP 115/72
--- NOTE | 2016-12-11 20:15 | NUR ---
PT HAS REPORTED FEELING MUCH BETTER THAN SHE HAD FELT IN THE PAST. PT SAID SHE "FELT POSITIVE AND MOTIVATED" TO BE THERE FOR HER SON. PT DENIES ANY THOUGHTS AT THIS TIME. PT ALSO DENIES ANY THOUGHTS OF AT THIS TIME.
--- NOTE | 2016-12-12 04:02 | NUR ---
Slept. Up x1 for BR.
[2016-12-12 07:56] VITALS: BP 116/58
[2016-12-12 12:04] VITALS: BP 118/75
--- NOTE | 2016-12-12 13:22 | NUR ---
Patient is A&O X 3, compliant with medication and group therapies. Patient continues to demonstrates stability in thought and behavior, mood is stable with full range affect, interacts appropriately with other peers and staff members. Vital sign is stable, report good night sleep and appetite and denies AH/VH, thought of self-harm and to someone else.
--- NOTE | 2016-12-12 13:56 | CP SOUTH PROGRESS NOTE PSYCH ---
Psych (Inpt) Progress Note Progress Note Include the following elements, when applicable: Involvement in the active treatment of the patient with behavioral observations of the patient and the patient's response to the treatment. Review of the ongoing treatment process in the context of the treatment plan. Indication of how multi-disciplinary staff members are carrying out the treatment plan. Plans for future interventions and recommendations for revision of the treatment plan. Liaison with other physicians/providers. Progress Note: Pt notes that "OK" today. Feeling much better overall but now feels increasing anxiety around discharge Wednesday. Denies SI or HI. Denies AVHs x3d, for which she is greatful. Current Medications Sig/Sixto Start time Last Medication Dose Route Stop Time Status Admin Acetaminophen 650 MG .STK-MED ONE 12/11 1640 DC PO 12/11 164 Acetaminophen 650 MG Q6P PRN 12/09 0745 AC 12/11 PO 1646 Benztropine Mesylate 1 MG Q4 HRS NEEDED PRN 12/07 1800 AC PO Hydroxyzine HCl 50 MG Q6-PRN PRN 12/05 1000 AC 12/12 PO 0826 [place] Carbonate 450 MG 12/09 0800 AC 12/12 PO 0826 [place] Carbonate 600 MG 2000 12/08 2000 AC 12/11 PO 1929 Lorazepam 0.5 MG 1200,0 12/10 2200 AC 12/12 PO 12/17 2158 1218 Melatonin 10 MG AT BEDTIME PRN 12/11 1656 AC 12/11 PO 2131 Melatonin 5 MG AT BEDTIME PRN 12/08 1845 DC 12/10 PO 2133 Nicotine 14 MG 0800 12/03 1430 AC 12/12 TOP 0826 Olanzapine 5 MG DAILY AC 12/12 0700 AC 12/12 PO 0622 Olanzapine 5 MG 1300 12/08 1300 AC 12/12 PO 1218 Olanzapine 7.5 MG DAILY AC 12/07 0700 DC 12/11 PO 0610 Olanzapine 15 MG 12/06 2200 AC 12/11 PO 2130 Perphenazine 2 MG Q4 HRS NEEDED PRN 12/07 1800 AC 12/11 PO 2329 Trazodone HCl 12.5 MG Q4P PRN 12/12 1345 UNVr PO Trazodone HCl 50 MG AT BEDTIME NEED.. 12/11 1530 AC 12/11 PO 2132 Venlafaxine HCl 37.5 MG ONCE ONE 12/11 1644 DC 12/11 PO 12/11 1646 1740 Laboratory Tests 12/11 06 Toxicology [place] (0.6 - 1.2 mmol/L) 0.7 Vital Signs Date Time Temp Pulse Resp B/P B/P Pulse O2 O2 Flow FiO2 Mean Ox Delivery Rate 12/12 1204 78 118/75 12/12 0756 89 116/58 12/12 1999 98.6 93 115/72 12/11 1551 94 123/72 MSE Appears as stated age. Cooperative behavior, good, appropriate eye contact. Nl speech rate and prosody. No psychomotor retardation or agitation. Mood fine Affect slightly anxious and sad, constricted, appropriate, non-liable. Linear and goal directed thought process. Denies SI or HI. Does not appear to be responding to internal stimuli. Denies AVHs, paranoia, or delusions. I/J: limited. A/P: Pt with bipolar disorder with marked psychotic features of cAHs, now resolved. - Start trazodone 12.5mg Q4hrs PRN anxiety - Otherwise continue current medication regimen - Encouarge groups and socialization
[2016-12-12 16:13] VITALS: BP 132/78
[2016-12-12 19:49] VITALS: BP 122/64
--- NOTE | 2016-12-12 20:33 | NUR ---
PT IS VISIBLE ON UNIT, SOCIALIZING WITH PEERS AND WATCHING TV IN LOUNGE. COOPERATIVE AND COMPLAINT WITH STAFF. NO COMPLAINTS OR SI REPORTED. PT HAS A STABLE MOOD AND FULL RANGE AFFECT.
--- NOTE | 2016-12-13 05:44 | NUR ---
PT LESS ANXIOUS. PT SLEPT.
[2016-12-13 07:43] VITALS: BP 112/70
--- NOTE | 2016-12-13 11:25 | CP SOUTH PROGRESS NOTE PSYCH ---
Psych (Inpt) Progress Note Progress Note Include the following elements, when applicable: Involvement in the active treatment of the patient with behavioral observations of the patient and the patient's response to the treatment. Review of the ongoing treatment process in the context of the treatment plan. Indication of how multi-disciplinary staff members are carrying out the treatment plan. Plans for future interventions and recommendations for revision of the treatment plan. Liaison with other physicians/providers. Progress Note: Pt notes that she is "good" today though notes high anxiety. She is anxious around discharge and feels that she "put everythign on hold to focus on myself and now have to focus on others." She is hopeful around discharge and plan to go to IOP, have VNA. To stay with friend immediately after discharge as recent breakup. Denies SI or HI. Denies AVHs. Current Medications Sig/Sixto Start time Last Medication Dose Route Stop Time Status Admin Acetaminophen 650 MG Q6P PRN 12/09 0745 AC 12/11 PO 1646 Benztropine Mesylate 1 MG Q4 HRS NEEDED PRN 12/07 1800 AC PO Hydroxyzine HCl 50 MG Q6-PRN PRN 12/05 1000 AC 12/12 PO 2153 [place] Carbonate 450 MG 12/09 0800 AC 12/13 PO 0820 [place] Carbonate 600 MG 12/08 2000 AC 12/12 PO 1937 Lorazepam 0.5 MG 1200,0 12/10 2200 AC 12/12 PO 12/17 2159 2152 Melatonin 10 MG AT BEDTIME PRN 12/11 1656 AC 12/12 PO 2153 Nicotine 14 MG 0812/03 1430 AC 12/13 TOP 0820 Olanzapine 5 MG DAILY AC 12/12 0700 AC 12/13 PO 0610 Olanzapine 5 MG 1300 12/08 1300 AC 12/12 PO 1218 Olanzapine 15 MG 12/06 2200 AC 12/12 PO 2153 Perphenazine 2 MG Q4 HRS NEEDED PRN 12/07 1800 AC 12/11 PO 2329 Trazodone HCl 25 MG Q4P PRN 12/13 1045 AC PO Trazodone HCl 12.5 MG Q4P PRN 12/12 1345 DC 12/13 PO 0822 Trazodone HCl 50 MG AT BEDTIME NEED.. 12/11 1530 AC 12/13 PO 0709 Laboratory Tests 12/11 0612 Toxicology [place] (0.6 - 1.2 mmol/L) 0.7 Vital Signs Date Time Temp Pulse Resp B/P B/P Pulse O2 O2 Flow FiO2 Mean Ox Delivery Rate 12/13 742 97.7 73 112/70 12/12 1949 99.2 87 122/64 12/12 1613 88 132/78 12/12 1204 78 118/75 MSE Appears as stated age. Cooperative behavior, good, appropriate eye contact. Nl speech rate and prosody. No psychomotor retardation or agitation. Mood good Affect slightly anxious and sad, constricted, appropriate, non-liable. Linear and goal directed thought process. Denies SI or HI. Does not appear to be responding to internal stimuli. Denies AVHs, paranoia, or delusions. I/J: limited. A/P: Pt with bipolar disorder with marked psychotic features of cAHs, now resolved. - Increase trazodone 25mg Q4hrs PRN anxiety as 12.5mg dose only somewhat effective - Otherwise continue current medication regimen - Encouarge groups and socialization
[2016-12-13 12:08] VITALS: BP 126/68
--- NOTE | 2016-12-13 13:22 | NUR ---
Patient active in all groups. Reports mood and sleep as greatly improved. Denies AH, future oriented. Positive phone call with son. Awaiting d/c tomorrow.
[2016-12-13 15:40] VITALS: BP 115/70
[2016-12-13 19:53] VITALS: BP 126/76
--- NOTE | 2016-12-13 22:06 | NUR ---
PT IS CALM, COOPERATIVE WITH STAFF AND PEERS, AND COMPLIANT WITH UNIT RULES. PT IS OFTEN IN [place], INTERACTING WELL WITH OTHERS. MOOD IS STABLE, AFFECT IS EUTHYMIC TO FULL RANGE, COMMUNICATION IS ORGANIZED AND APPEARS NORMAL IN ALL RESPECTS, AND APPETITE IS NORMAL. PT DENIES SI AT THIS TIME.
--- NOTE | 2016-12-14 05:00 | NUR ---
PT WITH NO AH. PT SLEPT UNTIL 0430. PT EXCITED AND ANXIOUS ABOUT DC.
[2016-12-14 07:37] VITALS: BP 105/60
[2016-12-14] MEDS ORDERED: NICOTINE PATCH1 EAC2 TOP (10:11)
--- NOTE | 2016-12-14 10:13 | NUR ---
PT IS SCHEDULED FOR D/C TODAY TO [facility]. SHE STATES SHE WILL STAY WITH HER COUSIN FOR A FEW WEEKS SO SHE IS NOT ALONE. SHE REPORTS AND DEMONSTRATES IMPROVEMENT IN HER MOOD AND ABILITY TO FUNCTION. SHE DENIES ANY THOUGHTS OF SUICIDE OR SELF HARM. SHE HAS FULL RANGE OF AFFECT.SHE EXPECTS TO FOLLOW UP WITH [facility]. SHE IS GIVEN EDUCATION ON MANAGING HER MOOD D/O AND ON SUICIDE PREVENTION
[2016-12-14] MEDS ORDERED: OLANZAPINE5 M2 PO (10:14)
[2016-12-14] MEDS ORDERED: OLANZAPINE15 M1 PO (10:14)
[2016-12-14] MEDS ORDERED: LITHIUM CARBON450 M1 PO (10:16)
[2016-12-14] MEDS ORDERED: ATIVAN0.5 M1 PO (10:16)
[2016-12-14] MEDS ORDERED: LITHIUM CARBON300 M6 PO (10:17)
[2016-12-14] MEDS ORDERED: MELATONIN5 M7 PO (10:18)
--- NOTE | 2016-12-14 10:27 | DISCHARGE SUMMARY REPORT-PSYCH ---
Visit Information Visit Dates/Diagnosis' Admission Date: 12/02/16 Discharge Date: 12/14/16 Reason for Admission: Exacerbation in depression. Suicidal ideation and attempt by hanging self while in the Emergency Department. New onset command auditory hallucinations. Psy Discharge Primary Diag: Bipolar disorder, current episode depressed, status- post suicide attempt with psychotic features. Psy Discharge Secondary Diag: PTSD; R/O Cluster B traits. Hospital Course Significant Lab Findings: Lab Cholesterol 114 MG/DL 12/09/16 0514 Cholesterol/HDL Ratio 2 % 12/09/16 0514 Glucose 95 mg/dL 12/01/16 1717 HDL Cholesterol 51 mg/dL 12/09/16 0514 LDL Cholesterol, Calc 28 mg/dL L 12/09/16 0514 Triglycerides 176 mg/dL H 12/09/16 0514 [place] 0.6 mmol/L 12/01/16 1717 [place] 0.6 mmol/L 12/04/16 0619 [place] 0.7 mmol/L 12/11/16 0612 Course Complications: None. Consultations: The patient was seen for admission history and physical by paving supervisor Dr. Erum Luna. Please see her note for additional information. Allergies: Coded Allergies: NO KNOWN ALLERGIES (04/24/15) Hospital Course/TX Response: The patient was monitored on the unit for safety, suicidal ideation, mood and command auditory hallucinations. Zyprexa was started for command auditory hallucinations telling her to harm herself and others; Zyprexa was titrated to 5mg QAM, 5mg at 1PM, and 15mg QHS. Trilafon 2mg Q4H prn was briefly added due to the intensity of the hallucinations. As needed Trilafon was eventually discontinued as hallucinations resolved. Given the patient's acute anxiety surrounding these hallucinations, Klonopin 0.5mg TID was switched to Ativan 1mg TID for anxiety. Ativan was tapered down to 0.5mg BID for anxiety. Effexor XR was tapered off due to concern for activating auditory hallucinations. [place] ER 450mg BID was maintained and then gradually increased to 450mg QAM and 600mg QHS for suicidal ideation/mood stabilization. Trazodone was decreased to 50mg at bedtime as needed for insomnia, as there was concern for activation of auditory hallucinations from higher dose bedtime Trazodone. Additionally, Melatonin 10mg was started at bedtime as needed for sleep induction. The patient tolerated all medications well and denied side effects. During the hospital course, the patient's mood and affect improved. Suicidal ideation and command auditory hallucinations remitted. A family meeting was held with the patient, her cousin, and Joy Wisdom LCSW. The patient's treatment progress, level of safety, and discharge planning were reviewed and discussed. The patient's cousin was very supportive and invited the patient to temporarily stay with her post-discharge. Her cousin additionally agreed to hold and monitor her medications during this time. The patient was agreeable to starting visiting nurse service once she returned to her home. She was also in favor of discharge to [facility] for continued monitoring and psychiatric support. The patient's cousin was also in favor of this discharge plan. On the date of discharge, 12/14/16, Madhavi presented alert and oriented to person , place and time. Speech was normal in rate, tone and volume. Eye contact was appropriate. Reported mood as "so much better." Affect was full-range. She had no complaints. She rated depression of 3/10 (10 being the worst) and anxiety of 4/10 (10 being the worst). She denied feeling hopeless, helpless, worthless and guilty. She denied passive and active suicidal ideation, plans and intent. She denied homicidal ideation, plans and intent. She identified protective factors of "my son" and "my cousin." She denied auditory and visual hallucinations. She reported last experiencing AH x 5 days ago. She denied paranoid ideation. There was no evidence of delusions. Thought process was linear, goal directed. Cognition was grossly intact. She expressed motivation to follow-up with [facility] for continued psychiatric support and to continue medications as prescribed. She reported tolerating all medications well and denied untoward medication effects. She reported feeling safe and ready for discharge. Discharge HBIPS - Tobacco Use Treatment Offered Post DC Medications Offered: Script Given-See Med List Post DC Tobacco Treatment Plan: [facility] Tobacco Tx Pgm Program Appt Date: 12/23/16 Program Appt Time: 1600 - EtOH/Drug Use D/O Treatment Offered Post DC Medications Offered: NA-No EtOH/Drug Use D/O Post DC EtOH/SubAbuse TX Plan: NA-No EtOH/Drug Use D/O Metabolic Screening - Screen if on a Neuroleptic Medication - Metabolic screening should include: - Blood Pressure, BMI, Glucose or Hgb A1c, & a - Lipid profile from within the past 365 days. Metabolic Screening () Not Applicable, patient not on a neuroleptic. OR ([X]) Patient on a neuroleptic(s) . Enter below results for Glucose or Hemoglobin A1C, and lipid panel if obtained during the last 365 days. BMI: 24.300 Blood Pressure: 109/68 Laboratory Results (If applicable): Lab Cholesterol 114 MG/DL 12/09/16513 Cholesterol/HDL Ratio 2 % 12/09/16513 Glucose 95 mg/dL 12/01/16 1717 HDL Cholesterol 51 mg/dL 12/09/16513 LDL Cholesterol, Calc 28 mg/dL L 12/09/16513 Triglycerides 176 mg/dL H 12/09/16513 Discharge Instructions General Discharge Information Discharge Medications: Discharge Medications- (Dose, route, freq, indication): START taking these NEW Home Medications: Nicotine (Nicotine Dose: On the skin, DAILY @8 AM Qty: 14 Sent to Patch) 14 MG/24 HOUR 14 Milligram for tobacco cessation Refills: 0 Pharm 1 PATCH.TD24 Apply 1 patch topically to upper arm QAM and remove before HS. Trazodone HCl Dose: ORAL, AT BEDTIME Qty: 14 Sent to (Trazodone HCl) 50 50 Milligram NEEDED as needed for Refills: 0 Pharm 1 MG TABLET INSOMNIA Take 1 tab po as needed QHS for insomnia. Olanzapine Dose: ORAL, 2200 for mood Qty: 14 Sent to (Olanzapine) 15 MG 15 Milligram stability/hallucinations Refills: 0 Pharm 1 TABLET Take 1 tab po at HS. Olanzapine Dose: ORAL, TWICE DAILY for Qty: 28 Sent to (Olanzapine) 5 MG 5 Milligram mood Refills: 0 Pharm 1 TABLET stability/hallucinations Take 1 tab po QAM and at 1PM. Lorazepam (Ativan) Dose: ORAL, 1200,2200 for Qty: 28 Called in to 0.5 MG TABLET 0.5 Milligram anxiety Refills: 0 Pharm 1 Take 1 tab po at 12PM and QHS. [place] Carbonate Dose: ORAL, DAILY @8 AM for Qty: 14 Sent to ([place] Carbonate 450 Milligram mood stabilization Refills: 0 Pharm 1 ER) 450 MG TABLET.ER Take 1 tab po QAM. [place] Carbonate Dose: ORAL, 2000 for mood Qty: 28 Sent to ([place] Carbonate 600 Milligram stabilization Refills: 0 Pharm 1 ER) 300 MG TABLET.ER Take 2 tabs po QHS. Melatonin Dose: ORAL, AT BEDTIME as Qty: 28 Sent to (Melatonin) 5 MG 10 Milligram needed for sleep Refills: 0 Pharm 1 TABLET induction/insomnia Take 2 tabs po as needed QHS. STOP taking these DISCONTINUED Home Medications: Clonazepam (Clonazepam) 0.5 MG Dose: ORAL, TAKE AT BEDTIME for ANXIETY TABLET 3 Tablet Reason Stopped: Per Doctor Decision Venlafaxine HCl (Effexor XR) Dose: ORAL, TWICE DAILY for 150 MG CAP.ER.24H 150 Milligram DEPRESSION/ANXIETY Reason Stopped: Per Doctor Decision Quetiapine Fumarate Dose: ORAL, AT BEDTIME for CLEAR (Quetiapine Fumarate) 300 MG 300 Milligram THOUGHTS TABLET Reason Stopped: Per Doctor Decision Quetiapine Fumarate Dose: ORAL, DAILY @8 AM for CLEAR (Quetiapine Fumarate) 100 MG 100 Milligram THOUGHTS TABLET Reason Stopped: Per Doctor Decision Quetiapine Fumarate Dose: ORAL, 1200 for CLEAR THOUGHTS (Quetiapine Fumarate) 100 MG 100 Milligram Reason Stopped: Per Doctor TABLET Decision Quetiapine Fumarate (Seroquel Dose: ORAL, Every night for UNKNOWN XR) (Unknown Strength) Unknown Dose Reason Stopped: Per Doctor TAB.ER.24H Decision 1: [id number], [place] [address] Your Preferred Pharmacy [id number] [address] [place] [address] Multiple Neuroleptics: ([X]) Not Applicable OR Document below three failed attempts at monotherapy, or a plan to taper to monotherapy, or augmentation of Clozapine. () Patient's Diet: Regular. Patient's Activity: No restrictions. DC Disposition: Patient will temprorarily return to her cousin's home for a few days, and then will return home. Recommendations: The patient was advised to please take medications as prescribed. She was advised to have [place] level repeated in 1-2 weeks. She was advised to follow- up with [facility] for continued psychiatric treatment and to adhere to visiting nurse service for medication assistance. She was advised that in the event of an emergency to call 911/go to nearest emergency department. Patient verbalized understanding of all instructions. Referred To: Post Discharge Referrals Outpatient Psychiatry Service Date: 12/14/16 [address] [place] [address] Notes: Intake 12/14/16 11:15 [facility] [address] [place] [address] Outpatient Psychiatry Service Date: 12/23/16 [address] [place] [address] Notes: [facility] Smoking cessation group [address] [place], [place] 12/23/16 4pm Provider Referral Service Date: 12/17/16 Referred To: [[facility]] Notes: [facility] Start 12/17/16 weekly prepour of meds and check in's 2x's a week [phone] Copies To: IOP; Smoking Cessation; [facility]
--- NOTE | 2016-12-14 10:27 | CP SOUTH PROGRESS NOTE PSYCH ---
Psych (Inpt) Progress Note Progress Note Include the following elements, when applicable: Involvement in the active treatment of the patient with behavioral observations of the patient and the patient's response to the treatment. Review of the ongoing treatment process in the context of the treatment plan. Indication of how multi-disciplinary staff members are carrying out the treatment plan. Plans for future interventions and recommendations for revision of the treatment plan. Liaison with other physicians/providers. Progress Note: I discussed this patient's progress to date, current mental status, treatment process in the context of the treatment plan, and discharge planning with staff/ team in the daily morning inpatient team meeting. I also met with the patient myself in individual session. OBJECTIVE: Current Medications Sig/Sixto Start time Last Medication Dose Route Stop Time Status Admin Acetaminophen 650 MG Q6P PRN 12/09 0745 AC 12/11 PO 1646 Benztropine Mesylate 1 MG Q4 HRS NEEDED PRN 12/07 1800 AC PO Clonazepam 0.5 MG .STK-MED ONE 12/14 2151 DC PO 12/13 215 Hydroxyzine HCl 50 MG Q6-PRN PRN 12/05 1000 AC 12/14 PO 0508 [place] Carbonate 450 MG 12/09 0800 AC 12/14 PO 0854 [place] Carbonate 600 MG 2000 12/08 2000 AC 12/13 PO 1953 Lorazepam 0.5 MG 1200,0 12/10 2200 AC 12/13 PO 12/17 215 2200 Melatonin 10 MG AT BEDTIME PRN 12/11 1656 AC 12/12 PO 2153 Nicotine 14 MG 0812/03 1430 AC 12/14 TOP 0854 Olanzapine 5 MG DAILY AC 12/12 0700 AC 12/14 PO 0614 Olanzapine 5 MG 1300 12/08 1300 AC 12/13 PO 1200 Olanzapine 15 MG 12/06 2200 AC 12/13 PO 2159 Perphenazine 2 MG Q4 HRS NEEDED PRN 12/07 1800 DC 12/11 PO 2329 Trazodone HCl 50 MG .STK-MED ONE 12/13 215 DC PO 12/13 215 Trazodone HCl 25 MG Q4P PRN 12/13 1045 AC 12/14 PO 0854 Trazodone HCl 50 MG AT BEDTIME NEED.. 12/11 1530 AC 12/13 PO 2202 Vital Signs Date Time Temp Pulse Resp B/P B/P Pulse O2 O2 Flow FiO2 Mean Ox Delivery Rate 12/14 0737 97.9 93 105/60 12/13 1953 97.7 85 126/76 12/13 1540 89 115/70 12/13 1208 94 126/68 ASSESSMENT: Chart, progress notes, VS and medication list reviewed. Met with patient today on the date of discharge. Patient presented alert and oriented to person, place and time. Speech was normal in rate, tone and volume. Eye contact was appropriate. Reported mood as "so much better." Affect was full- range. She had no complaints. She rated depression of 3/10 (10 being the worst) and anxiety of 4/10 (10 being the worst). She denied feeling hopeless, helpless, worthless and guilty. She denied passive and active suicidal ideation, plans and intent. She denied homicidal ideation, plans and intent. She identified protective factors of "my son" and "my cousin." She denied auditory and visual hallucinations. She reported last experiencing AH x 5 days ago. She denied paranoid ideation. There was no evidence of delusions. Thought process was linear, goal directed. Cognition was grossly intact. She expressed motivation to follow-up with [facility] and continue medications as prescribed. She reported tolerating all medications well and denied untoward medication effects. She reported feeling safe and ready for discharge. PLAN: 1. Discharge today into the care of cousin. 2. F/u at [facility] at 11:15AM for intake today. 3. All discharge medications were e-prescribed to [facility]. Discharge prescription for Ativan was called in to [facility] today. 4. In the event of an emergency, call 911/go to nearest emergency department. Patient verbalized understanding of all instructions. 5. [facility] to start on for daily medication administration.
[2016-12-14] MEDS ORDERED: TRAZODONE HCL50 M1 PO (10:34)
--- NOTE | 2016-12-14 10:39 | SOCIAL WORKER PROG NOTE PSYCH ---
Social Work Progress Note Progress Note Called [facility] to refer Madhavi for services to start on 12/17, for weekly prepours and check in's 2x's week. Al Monroy was give all of her information to begin services. Madhavi is ready to go today. I informed her of the [facility] information. She reported having a good weekend, but anxious in anticipation of her discharge today. IOP intake scheduled for 11:15am. She will follow up to have her cousin Supriya pick her up after her intake. I gave her a copy of the short term disability paperwork that was faxed last week. Called her worker Tenee at [facility] to discuss discharge follow up. She would like a copy of the discharge summary and W-10.
[2016-12-14 12:29] VITALS: BP 109/68
== END 2016-12-14 11:25 | DRG 753 ==
LOC: ERH 16:55 → ENRESERV 12-02 13:00 → CP SOUTH 12-02 14:08 → ERHI 12-02 14:08 → CP SOUTH 12-02 14:40 → ENPENDDIS 12-14 12:00
PROVIDERS: Physician Assistant; Registered Nurse Psychiatric/Mental Health; ADMIT Psychiatry & Neurology Addiction Medicine
DX: F31.5 Bipolar disorder, current episode depressed, severe, with psychotic features (principal); F43.10 Post-traumatic stress disorder, unspecified
CPT/HCPCS: 36415; 80307; 90832; 90853; 93005; 93010; G0463-25; G0480

== ENCOUNTER 2017-02-15 12:29 | Inpatient (IN) | payer OTHER ==
[~2017-02-15] VITALS: Ht 172.7 cm; Wt 78.8 kg
[~2017-02-15 12:29] MED LIST changes: +ATIVAN0.5 M1 PO; +LITHIUM CARBON300 M6 PO; +MELATONIN5 M7 PO; +OLANZAPINE15 M1 PO; +OLANZAPINE5 M2 PO; +SEROQUEL XR400 M1 PO; +VENLAFAXINE HCL75 M1
--- NOTE | 2017-02-15 12:35 | ED PSY CRISIS COLLATERAL NOTE ---
Collateral Note Collateral Note Family/Inform/Rosalia Contacts: Recieved call from Joselyn from [facility]. Pt reports auditory hallucinations telling her to hurt herself. Pt reportedly banged her head against the wall trying to make the voices stop yesterday. She has a history of suicide attempts by "stock piling" her medications. She reports she missed 1-2 doses of medication recently, Joselyn unsure how accuarte this is. Pt diagnosed with Bipolar Disorder, MRE Depressed & PTSD. Pt has been attending [facility] for several months with minimal improvement. Pt has had 2 inpatient hospitalizations while in [facility] as well. Most recently discharge was December 2016. Pt does have DCF worker, Lali ([phone]). PT has 12 year old boy who stays home alone while pt attends [facility]. Pt's cousin is going to home to care for pt's son.
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
[2017-02-15 13:46] LABS: ABSOLUTE BASOPHIL COUNT 0 /CUMM (0.0-0.2); ABSOLUTE EOSINOPHIL COUNT 0 /CUMM (0.0-0.7); ABSOLUTE GRANULOCYTE CT 4.5 /CUMM (1.4-6.5); ABSOLUTE LYMPH COUNT 1.2 /CUMM (1.2-3.4); ABSOLUTE MONOCYTE COUNT 0.5 /CUMM (0.10-0.60); BASOPHIL % 0.3 % (0.0-2.0); EOSINOPHIL % 0.3 % (0-5); GRANULOCYTE % 71.8 % (42.2-75.2); HEMATOCRIT 38.8 % (37-47); MEAN CORPUSCULAR HGB 29.8 PG (27.0-31.0); MEAN CORPUSCULAR HGB CONC 34.1 G/DL (33.0-37.0); MEAN CORPUSCULAR VOLUME 87.4 FL (81.0-99.0); MEAN PLATELET VOLUME 8.3 FL (7.4-10.4); PLATELET COUNT 276 /CUMM (130-400); RBC DISTRIBUTION WIDTH 13.2 % (11.5-14.5); RED BLOOD CELL CT 4.44 /CUMM (4.20-5.40); WHITE BLOOD CELL COUNT 6.3 /CUMM (4.8-10.8)
[2017-02-15] MEDS ORDERED: CLONAZEPAM0.5 M2 PO (14:06)
[2017-02-15] MEDS ORDERED: TRAZODONE HCL50 M1 PO (14:08)
[2017-02-15] MEDS ORDERED: LAMOTRIGINE100 M2 PO (14:08)
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
[2017-02-15 20:43] LABS: LITHIUM 0.4 mmol/L (0.6-1.2)
[2017-02-15 22:59] VITALS: BP 128/77
[2017-02-16 07:59] VITALS: BP 120/65
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
[2017-02-16 12:42] VITALS: BP 119/68
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
--- NOTE | 2017-02-16 15:58 | SOCIAL WORKER TX PLAN PSYCH ---
Treatment Plan - Please Document: - Evidence that there is ongoing collaboration between - the patient and the interdisciplinary team, - including the patient's active participation and - responsibility for engaging in the treatment regimen, - and that the treatment plan is individualized and - relevant to the patient's conditions. - Treatment plan should reflect documentation indicating - that all active therapeutic efforts are included. Strengths/Capabilities: The patient has good insight into her symptoms and need for treatment and is motivated to attend. Physical Limitations (Interventions): None Noted Patient Identified Trmt Goals: I need to work on using my coping skills Discharge Plan: IOP and stay with cousin at her house temporarily Problem/Goals #1 Problem #1: psychosis Goal (Short Term): patient will explore medication changes to help manage auditory hallucinations Goal (Motor Vehicle Field Representative): patient will have diminished hallucinations with ability to function safely on the unit before discharge. Interventions: patient will be offered medication management with the HEATING AND REFRIGERATION INSPECTOR, groups will be offered on symptom management, coping skills, relaxation, goals group, focus group, art therapy. Auditor Tax will discuss triggers to increase in symptoms and assess symptoms daily. Assist with aftercare planning and hold family meeting. DSM5/PS Stressors/Medical Prob Diagnosis' (DSM 5, Stressors, Medical): F31.5 Bipolar Disorder, MRE depressed, severe with psychosis F43.10 PTSD ( PER IOP) Medical: Unremarkable Stressors: Financial, housing, family and DCF involvement Current GAF: 25 Treatment Team - Responsibilities of members of the treatment team include: - Medication Management- MD or HEATING AND REFRIGERATION INSPECTOR - Medication Administration and Monitoring- Nurse - Group Therapy- Occupational Therapist - 1:1 Therapy,Disch Planning,family involvement-Auditor Tax
--- NOTE | 2017-02-16 15:58 | SOCIAL WORKER PROG NOTE PSYCH ---
Social Work Progress Note Progress Note Madhavi met with me this afternoon. Kiera Horner LCSW was also in the room. Madhavi shared that she recently was experiencing increased stress pertaining to finances, possible eviction, son is going away on vacation for 3 weeks. Symptoms started increasing recently due to stressors. She began experiencing voices again and having increased thoughts to hurt herself. She reports that she has been hearing a man's voice to harm herself, particularly wrap a blanket around her neck. She knows the voice isn't real and stated she would not act on this and feels safe here. She is able to go to staff for help and assistance if needed. She reported a couple of times how uncomfortable she would be left alone at home while her son is gone. He is going with his grandparents on a trip down [place]. I asked if she felt ok with him going on this trip? She said she felt ok and that she knows he will be safe. She thinks she will end up staying with her cousin Tania when she leaves here, so she won't be alone. She mentioned feeling like a burden to her cousin. She reports that she feels upset that she didn't tell her cousin prior to the ER that she was feeling suicidal and hearing voices. She signed a release for her cousin, [facility], and [facility]. She stated she has been working 20-28 hours. She believes she is due into work tomorrow afternoon. She asked if I would call and report she is here. I asked what causes her from not wanting to do this? She said she had a difficult time with conflict and I believe felt ashamed over having to make that type of call again. We talked about her medication compliance outside of the hospital. She acknowledged that she had taken some night pills and stored them with a plan to take them at a later time. She admitted to then telling the nurse what she did. Asked if she would be open to BID medical psychotherapist from [facility]? She said she didn't see how that would work with her work schedule. Her hours vary in the evening. Called [facility] and spoke with the pharmacist Juli and informed her Madhavi was in the hospital and I was not sure her discharge date at this time, but she will not be reporting to work tomorrow. She said she will remove her from the schedule and thanked me.
[2017-02-16 16:23] VITALS: BP 125/69
[2017-02-16 20:01] VITALS: BP 126/73
[2017-02-17 07:48] VITALS: BP 128/70
[2017-02-17 12:30] VITALS: BP 110/69
--- NOTE | 2017-02-17 13:29 | CP SOUTH PROGRESS NOTE PSYCH ---
Psych (Inpt) Progress Note Progress Note I reviewed the patients electronic health record Nurse Kiera gave a verbal report Patients sleep record indicated pt. slept well, out of bed once to bathroom, 1 :1 observation maintained BP 110/69, Pulse 87, Temp 98.1, I interviewed patient No new labs past 24 hours Background: 36-year-old female with a history of Bipolar disorder, depressed with psychotic features, PTSD, anxiety; she presented to [facility] Emergency Department from [facility] on 02/15/17 after disclosing suicidal ideation and command auditory hallucinations to harm herself. She was admitted voluntarily to inpatient psychiatry. Diagnoses of record: Bipolar Disorder, MRE depressed, severe, with psychotic features PTSD Mental Status Update: Patient reported still having on-off command hallucinations Showed good eye contact, her speech was soft, normal in rate and tone. She reported some anxiety, occasional feelings of hopelessness but denies suicidal ideation. Denied homicidal ideation, no evidence of paranoia or delusional thought content. Cognition grossly intact. PLAN: After discussing options with the patient and reading Jenwilman sign out, we agreed to: Increase bedtime Haldol to 7.5 mg QHS
--- NOTE | 2017-02-17 13:55 | IP INCIDENTAL NOTE PSYCH ---
Incidental Note Notation: 1:1 observation status discontinued as there is no further clinical need at this point, plan discussed with nurse Qureshi before implementation
[2017-02-17 16:01] VITALS: BP 114/69
--- NOTE | 2017-02-17 17:24 | SOCIAL WORKER PROG NOTE PSYCH ---
Social Work Progress Note Progress Note Madhvai shared that she had a stressful day. She learned from her cousin Tania that there was a notice of eviction on her apartment door. She is not clear exactly what it said. She decided to call her landlord today. She was able to speak with him and offered to pay him 500.00 right now. He is accepting this payment, but is expecting another 550.00 to catch up. She then owes 850.00 for March. She really doesn't want to lose her apartment. She talked about how much her son likes being there and it is a good place for them. She wants to do everything she can to stay there and needs to get back to work to make money. I told her she may be able to use [facility] for help if she needs to. I will look up their information for her. She reports sleeping well and slept into breakfast which she then missed. Denied any distressing voices today. Stated they are voices that say "stupid stuff", that she finds more annoying than anything. Most of the voices seem to be during the day vs. evening. She wants to return to [facility] as an aftercare plan. I told her I would like to do a meeting Wednesday if possible with her cousin. We called her cousin together, but she was not available to meet until Wednesday. I set up a time for 11:30am.
[2017-02-17 19:42] VITALS: BP 112/69
[2017-02-18 07:38] VITALS: BP 101/62
--- NOTE | 2017-02-18 11:03 | CP SOUTH PROGRESS NOTE PSYCH ---
Psych (Inpt) Progress Note Progress Note Include the following elements, when applicable: Involvement in the active treatment of the patient with behavioral observations of the patient and the patient's response to the treatment. Review of the ongoing treatment process in the context of the treatment plan. Indication of how multi-disciplinary staff members are carrying out the treatment plan. Plans for future interventions and recommendations for revision of the treatment plan. Liaison with other physicians/providers. Progress Note: I discussed this patient's progress to date, current mental status, treatment process in the context of the treatment plan, and discharge planning with staff/ team in the daily morning inpatient team meeting. I also met with the patient myself in individual session. Current Medications Sig/Sixto Start time Last Medication Dose Route Stop Time Status Admin Benztropine Mesylate 1 MG 02/19 0800 UNVr PO Benztropine Mesylate 0.5 MG Q4 HRS NEEDED PRN 02/17 0900 AC 02/17 PO 1243 Benztropine Mesylate 1 MG 0 02/16 2200 AC 02/17 PO 2132 Clonazepam 1 MG 02/16 2200 AC 02/17 PO 02/23 2159 2133 Haloperidol 5 MG 0802/19 0800 UNVr PO Haloperidol 5 MG 0 02/18 2200 UNVr PO Haloperidol 7.5 MG 2200 02/17 2200 DC 02/17 PO 2133 Haloperidol 5 MG 2200 02/16 2200 DC 02/16 PO 2151 Haloperidol 2 MG Q4 HRS NEEDED PRN 02/16 1215 AC 02/18 PO 0748 Lamotrigine 100 MG QPM 02/16 2200 AC 02/17 PO 2132 [place] Carbonate 600 MG 2000 02/16 2000 AC 02/17 PO 1936 [place] Carbonate 450 MG 0800 02/16 0800 AC 02/18 PO 0748 Loperamide HCl 2 MG Q2 HRS NEEDED PRN 02/17 1130 AC 02/17 PO 1454 Nicotine 14 MG DAILY 02/16 1545 AC 02/18 TOP 0749 Nicotine 2 MG Q2 HRS NEEDED PRN 02/16 1545 AC PO Trazodone HCl 150 MG AT BEDTIME 02/16 0030 AC 02/17 PO 2132 Vital Signs Date Time Temp Pulse Resp B/P B/P Pulse O2 O2 Flow FiO2 Mean Ox Delivery Rate 02/18 738 98.3 69 101/62 02/17 1942 98.6 81 112/69 02/17 1601 71 114/69 02/17 1230 87 110/69 A: Chart, progress notes, labs, vital signs and medication list reviewed. No new lab results today. Vital signs within normal limits. 1:1 observation was discontinued yesterday. Haldol was additionally increased from 5mg QHS to 7.5mg QHS for AH. Patient seen at 11:02AM. She reports improved sleep, since changing Klonopin to 1mg at bedtime in combination with scheduled Trazodone. States she is going through housing challenges, learned recently that an eviction notice was placed on her door. Patient, however, does not appear to be avoiding her stressors. Reports she contacted her landlord and spoke to him regarding this process. Patient reports continued AH, non-command in nature. AH primarily saying derogatory statements and laughing at her regarding housing struggles. States AH is of a male voice and somewhat distressing. Patient requesting to go up on scheduled Haldol. States AH is predominantly more present during the day. We agreed to change Haldol dosing from 7.5mg QHS to 5mg BID; informed patient I would also add Cogentin 1mg QAM to prevent symptoms of EPS. She denies visual hallucinations and paranoid ideation. Denies suicidal and homicidal ideation. Admits to feeling hopeless and helpless surrounding housing situation; however, offers the solution of staying with her cousin temporarily until she can pay back her landlord. There is no evidence of delusional or illogical thought content. Rates anxiety a 7/10 (10 being the worst) and depression a 4-5/10 (10 being the worst). She denies feeling worthless or guilty. Remains motivated to resume working and stabilize her finances. Patient agreeable to resuming aftercare treatment with [facility] and VNS with [facility]. P: -Continue monitoring for safety, mood, SI and psychosis. -Change Haldol from 7.5mg QHS to 5mg BID for hallucinations. -Add Cogentin 1mg QAM to prevent symptoms of EPS. -Continue Trazodone 150mg QHS and Klonopin 1mg QHS for insomnia. -Li level scheduled on 02/20/17 at 6AM. -Dispo planning per primary team - arrange f/u at [facility] and VNS.
--- NOTE | 2017-02-18 11:44 | SOCIAL WORKER PROG NOTE PSYCH ---
Social Work Progress Note Progress Note Member Name Member ID Member Subscriber Name Subscriber ID JONATHON YEUNG [id number] 1980 JONATHON Tripathi GAMAL [id number] Pended Authorization # Client Authorization # Type of Request [id number] CONCURRENT Date of Admission/ Start of Services Requested From Submission Date 02/15/2017 02/18/2017 02/18/2017
--- NOTE | 2017-02-18 11:45 | SOCIAL WORKER PROG NOTE PSYCH ---
Social Work Progress Note Progress Note Pt was cooperative, calm and appropriate she is looking forward to having her son visit, and we processed ways to support him going on this trip. She states "Im going to try to do that", she also states she was going to call work and ask them to put her on the schedule wed-wed so she can earn money and focus on staying busy and being useful. Pt reports her nightime meds are taken in the evening and she has trouble finding a nurse at that time to deliver them to her, therefore she wouldnt be tempted to "stockpile" meds in the future. We will explore this with current vns/ and inform IOP.
[2017-02-18 12:20] VITALS: BP 113/66
[2017-02-18 15:53] VITALS: BP 120/64
--- NOTE | 2017-02-18 16:56 | SOCIAL WORKER PROG NOTE PSYCH ---
Social Work Progress Note Progress Note Gave Madhavi a print out on [facility]'s phone number and information. Rec'd a call from Jorge at [facility] [phone]. Returned her call and left a message.
[2017-02-18 19:47] VITALS: BP 119/66
[2017-02-19 07:43] VITALS: BP 108/63
[2017-02-19 12:10] VITALS: BP 114/71
--- NOTE | 2017-02-19 13:51 | CP SOUTH PROGRESS NOTE PSYCH ---
Psych (Inpt) Progress Note Progress Note Include the following elements, when applicable: Involvement in the active treatment of the patient with behavioral observations of the patient and the patient's response to the treatment. Review of the ongoing treatment process in the context of the treatment plan. Indication of how multi-disciplinary staff members are carrying out the treatment plan. Plans for future interventions and recommendations for revision of the treatment plan. Liaison with other physicians/providers. Progress Note: I discussed this patient's progress to date, current mental status, treatment process in the context of the treatment plan, and discharge planning with staff/ team in the daily morning inpatient team meeting. I also met with the patient myself in individual session. Current Medications Sig/Sixto Start time Last Medication Dose Route Stop Time Status Admin Benztropine Mesylate 1 MG 02/19 0800 AC 02/19 PO 0854 Benztropine Mesylate 0.5 MG ONCE ONE 02/18 181 DC 02/18 PO 02/18 181 1825 Benztropine Mesylate 0.5 MG Q4 HRS NEEDED PRN 02/17 0900 AC 02/19 PO 0657 Benztropine Mesylate 1 MG 2200 02/16 2200 AC 02/18 PO 2125 Clonazepam 1 MG 2200 02/16 2200 AC 02/18 PO 02/23 2159 2125 Haloperidol 5 MG 02/19 0800 AC 02/19 PO 0854 Haloperidol 5 MG 0 02/18 2200 AC 02/18 PO 2125 Haloperidol 2 MG ONCE ONE 02/18 1815 DC 02/18 PO 02/18 1816 1825 Haloperidol 2 MG .STK-MED ONE 02/18 1810 DC PO 02/18 1811 Haloperidol 2 MG Q4 HRS NEEDED PRN 02/16 1215 AC 02/19 PO 0656 Lamotrigine 100 MG QPM 02/16 2200 AC 02/18 PO 2125 [place] Carbonate 600 MG 2000 02/16 2000 AC 02/18 PO 2040 [place] Carbonate 450 MG 0800 02/16 0800 AC 02/19 PO 0854 Loperamide HCl 2 MG Q2 HRS NEEDED PRN 02/17 1130 AC 02/17 PO 1454 Lorazepam 1 MG ONCE ONE 02/18 1815 DC 02/18 PO 02/18 1816 1824 Nicotine 14 MG DAILY 02/16 1545 AC 02/19 TOP 0854 Nicotine 2 MG Q2 HRS NEEDED PRN 02/16 1545 AC PO Trazodone HCl 150 MG AT BEDTIME 02/16 0030 AC 02/18 PO 2125 Vital Signs Date Time Temp Pulse Resp B/P B/P Pulse O2 O2 Flow FiO2 Mean Ox Delivery Rate 02/19 1210 88 114/71 02/19 0743 98.5 73 108/63 02/18 1947 98.7 71 119/66 02/18 1553 74 120/64 A: Chart, progress notes, labs, vital signs and medication list reviewed. Vital signs within normal limits. No new lab results today. Patient seen at 2:30PM. Patient reports feeling overhwelmed after having conversation with her son last evening who told her he wants to move to [place] to live with his grandparents. Patient states this information caught her off guard, makes her feel anxious and sad. States her primary concern is being alone since she has never been away from her son for greater than 2 weeks at a time. Patient was able to discuss her concerns appropriately. Also reviewed with patient the needs of her 14y/o son. She states DCF is involved and in favor of her son moving to [place]. She states auditory hallucinations have lessened since increase in Haldol to 5mg BID. Denies AH are command in nature or threatening; mostly derogatory but "manageable". Denies visual hallucinations. Denies paranoid ideation. No evidence of delusional or illogical thought content. Denies suicidal and homicidal ideation, plans, intent. Reports she slept through the night without interuptions. States appetite is good. Energy level is "kind of low." Thought process linear. Thought content sad, anxious. Cognition grossly intact. Patient reports tolerating medications well; denies SEs. No evidence of movement disorder. P: -Continue monitoring for safety, mood, hallucinations and SI. -Continue Haldol 5mg BID + 2mg prns Q4H for hallucinations. -Li level scheduled tomorrow morning. Increase to target range. Target range: 0.8-1.0. -Arrange dispo for [facility] and VNS on Wednesday. Will reassess discharge on Wednesday if clinically stable.
--- NOTE | 2017-02-19 15:42 | SOCIAL WORKER PROG NOTE PSYCH ---
Social Work Progress Note Progress Note Clinician met with pt, she reports she had an anxiety attack last night because of all the bad newd she has received lately. "I'm losing my house and my son is leaving for [place]" "I just want to get out and get back to work so that I can fix things" Pt reports that he Landlord is allowing her to stay in the apartment for a certain amount of time once she is able to come up with the money. Pt said she had a visit with her DCF worker Jorge today and the worker is in agreement with the plan for her son to get away for approximately 3 weeks. "I'm just trying to process everything" Pt's mood was depressed with a somber expression. She expressed feeling ready to move on with her life, however she continue to talk about "the way her ex- boyfriend left". Pt was made aware of the anticipated discharge on Wednesday and she is scheduled for an intake with Kyrie HAYES at 12:45pm. Pt signed the Release of Information for [facility]. Clinician spoke to Ginette at [facility] ext [phone] and faxed over the Release of Information at , and told her the pt will be discharged on Wednesday with the plan for them to resume services.
[2017-02-19 15:47] VITALS: BP 113/65
[2017-02-19 19:59] VITALS: BP 124/73
[2017-02-20 07:54] VITALS: BP 110/67
--- NOTE | 2017-02-20 11:14 | CP SOUTH PROGRESS NOTE PSYCH ---
Psych (Inpt) Progress Note Progress Note Include the following elements, when applicable: Involvement in the active treatment of the patient with behavioral observations of the patient and the patient's response to the treatment. Review of the ongoing treatment process in the context of the treatment plan. Indication of how multi-disciplinary staff members are carrying out the treatment plan. Plans for future interventions and recommendations for revision of the treatment plan. Liaison with other physicians/providers. Pt notes that "body is very stressed" and feels that mood is "up and down." Notes that coping better and feels that meds are helpful. Sleep is good. Wants midday dose of haldol to help with mood and thoughts. Denies SI or HI. Current Medications Sig/Sixto Start time Last Medication Dose Route Stop Time Status Admin Benztropine Mesylate 0.5 MG .STK-MED ONE 02/19 141 DC PO 02/19 1417 Benztropine Mesylate 1 MG 02/19 08 AC 02/20 PO 0822 Benztropine Mesylate 0.5 MG Q4 HRS NEEDED PRN 02/17 09 AC 02/19 PO 1416 Benztropine Mesylate 1 MG 02/16 2200 AC 02/19 PO 2124 Carbamide Peroxide 5 GTT DAILY NEEDED PRN 02/19 1445 AC OTIC Clonazepam 1 MG 02/16 2200 AC 02/19 PO 02/23 2159 2125 Haloperidol 2 MG DAILY 02/21 1000 UNVr PO Haloperidol 2 MG .STK-MED ONE 02/19 1417 DC PO 02/19 1418 Haloperidol 5 MG 02/19 08 AC 02/20 PO 0822 Haloperidol 5 MG 02/18 2200 AC 02/19 PO 2124 Haloperidol 2 MG Q4 HRS NEEDED PRN 02/16 1215 AC 02/19 PO 1416 Lamotrigine 100 MG QPM 02/16 2200 AC 02/19 PO 2125 [place] Carbonate 600 MG 02/16 AC 02/19 PO 1942 [place] Carbonate 450 MG 00 02/16 08 AC 02/19 PO 0854 Loperamide HCl 2 MG Q2 HRS NEEDED PRN 02/17 1130 AC 02/17 PO 1454 Nicotine 14 MG DAILY 02/16 1545 AC 02/20 TOP 0822 Nicotine 2 MG Q2 HRS NEEDED PRN 02/16 1545 AC PO Trazodone HCl 150 MG AT BEDTIME 02/16 0030 AC 02/19 PO 2124 Laboratory Tests 02/20 0545 Toxicology [place] (0.6 - 1.2 mmol/L) 0.6 Vital Signs Date Time Temp Pulse Resp B/P B/P Pulse O2 O2 Flow FiO2 Mean Ox Delivery Rate 02/20 0754 97.9 66 110/67 02/19 1959 98.9 75 124/73 02/19 1547 75 113/65 02/19 1210 88 114/71 MSE Appears as stated age. Cooperative behavior, good, appropriate eye contact. Nl speech rate and prosody. No psychomotor retardation or agitation. Mood OK Affect irritable, depressed, constricted, appropriate, non-liable. Linear and goal directed thought process. Denies SI or HI. Does not appear to be responding to internal stimuli. Denies AVHs, paranoia, or delusions. I/J: limited A/P: Pt with BP disorder and borderline traits with improved mood and affect. - [place] level of 0.6, to increase lithium to 600mg BID - Add haldol 2.5mg at 1pm - Otherwise continue current medication regimen
[2017-02-20 12:45] VITALS: BP 106/57
[2017-02-20 16:00] VITALS: BP 117/65
[2017-02-20 19:53] VITALS: BP 114/69
[2017-02-21 07:35] VITALS: BP 102/65
--- NOTE | 2017-02-21 11:50 | CP SOUTH PROGRESS NOTE PSYCH ---
Psych (Inpt) Progress Note Progress Note Include the following elements, when applicable: Involvement in the active treatment of the patient with behavioral observations of the patient and the patient's response to the treatment. Review of the ongoing treatment process in the context of the treatment plan. Indication of how multi-disciplinary staff members are carrying out the treatment plan. Plans for future interventions and recommendations for revision of the treatment plan. Liaison with other physicians/providers. Progress Note: Pt notes that feeling "OK" today. Feels mood has improved overall. Denies SI or HI. Current Medications Sig/Sixto Start time Last Medication Dose Route Stop Time Status Admin Benztropine Mesylate 1 MG 0800 02/19 0800 AC 02/21 PO 0753 Benztropine Mesylate 0.5 MG Q4 HRS NEEDED PRN 02/17 0900 AC 02/20 PO 1152 Benztropine Mesylate 1 MG 02/16 2200 AC 02/20 PO 2131 Carbamide Peroxide 5 GTT DAILY NEEDED PRN 02/19 1445 AC 02/21 OTIC 0754 Clonazepam 1 MG 0 02/16 2200 AC 02/20 PO 02/23 2159 2131 Haloperidol 2 MG DAILY 02/21 1000 DC PO Haloperidol 2 MG DAILY@1300 02/20 1300 AC 02/20 PO 1430 Haloperidol 5 MG 0800 02/19 0800 AC 02/21 PO 0753 Haloperidol 5 MG 0 02/18 2200 AC 02/20 PO 2131 Haloperidol 2 MG Q4 HRS NEEDED PRN 02/16 1215 AC 02/20 PO 1153 Lamotrigine 100 MG QPM 02/16 2200 AC 02/20 PO 2132 [place] Carbonate 600 MG BID 02/20 2200 AC 02/21 PO 0753 [place] Carbonate 600 MG ONCE ONE 02/20 1245 DC 02/20 PO 02/20 1246 1430 Loperamide HCl 2 MG Q2 HRS NEEDED PRN 02/17 1130 AC 02/17 PO 1454 Nicotine 14 MG DAILY 02/16 1545 AC 02/21 TOP 0753 Nicotine 2 MG Q2 HRS NEEDED PRN 02/16 1545 AC PO Trazodone HCl 150 MG AT BEDTIME 02/16 0030 AC 02/20 PO 2132 Laboratory Tests 02/20 0545 Toxicology [place] (0.6 - 1.2 mmol/L) 0.6 Vital Signs Date Time Temp Pulse Resp B/P B/P Pulse O2 O2 Flow FiO2 Mean Ox Delivery Rate 02/21 0735 97.2 68 102/65 02/20 1953 98.8 74 114/69 02/20 1600 69 117/65 02/20 1245 75 106/57 MSE Appears as stated age. Cooperative behavior, good, appropriate eye contact. Nl speech rate and prosody. No psychomotor retardation or agitation. Mood OK Affect less depressed, brighter, constricted, appropriate, non-liable. Linear and goal directed thought process. Denies SI or HI. Does not appear to be responding to internal stimuli. Denies AVHs, paranoia, or delusions. I/J: limited A/P: Pt with BP disorder and borderline traits with improved mood and affect. - Continue current med regimen - Pt needs work note at discharge - Otherwise continue current medication regimen
[2017-02-21 12:06] VITALS: BP 98/66
[2017-02-21 16:15] VITALS: BP 117/71
[2017-02-21 20:07] VITALS: BP 107/60
[2017-02-22 08:04] VITALS: BP 112/63
--- NOTE | 2017-02-22 08:58 | CP SOUTH PROGRESS NOTE PSYCH ---
Psych (Inpt) Progress Note Progress Note Include the following elements, when applicable: Involvement in the active treatment of the patient with behavioral observations of the patient and the patient's response to the treatment. Review of the ongoing treatment process in the context of the treatment plan. Indication of how multi-disciplinary staff members are carrying out the treatment plan. Plans for future interventions and recommendations for revision of the treatment plan. Liaison with other physicians/providers. Progress Note: I discussed this patient's progress to date, current mental status, treatment process in the context of the treatment plan, and discharge planning with staff/ team in the daily morning inpatient team meeting. I also met with the patient myself in individual session. Current Medications Sig/Sixto Start time Last Medication Dose Route Stop Time Status Admin Benztropine Mesylate 1 MG 02/19 0800 AC 02/22 PO 0824 Benztropine Mesylate 0.5 MG Q4 HRS NEEDED PRN 02/17 0900 AC 02/20 PO 1152 Benztropine Mesylate 1 MG 0 02/16 2200 AC 02/21 PO 2113 Carbamide Peroxide 5 GTT DAILY NEEDED PRN 02/19 1445 DC 02/22 OTIC 0659 Clonazepam 1 MG 2200 02/16 2200 AC 02/21 PO 02/23 2159 2112 Haloperidol 2 MG DAILY 02/21 1000 DC PO Haloperidol 2 MG DAILY@1300 02/20 1300 AC 02/21 PO 1232 Haloperidol 5 MG 02/19 0800 AC 02/22 PO 0824 Haloperidol 5 MG 2200 02/18 2200 AC 02/21 PO 2113 Haloperidol 2 MG Q4 HRS NEEDED PRN 02/16 1215 AC 02/20 PO 1153 Lamotrigine 100 MG QPM 02/16 2200 AC 02/21 PO 2112 [place] Carbonate 600 MG BID 02/20 2200 AC 02/22 PO 0825 Loperamide HCl 2 MG Q2 HRS NEEDED PRN 02/17 1130 AC 02/17 PO 1454 Nicotine 14 MG DAILY 02/16 1545 AC 02/22 TOP 0825 Nicotine 2 MG Q2 HRS NEEDED PRN 02/16 1545 AC PO Trazodone HCl 150 MG AT BEDTIME 02/16 0030 AC 02/21 PO 2113 Vital Signs Date Time Temp Pulse Resp B/P B/P Pulse O2 O2 Flow FiO2 Mean Ox Delivery Rate 02/22 0804 98.5 73 112/63 02/21 2007 98.5 77 107/60 02/21 1615 69 117/71 02/21 1206 66 98/66 Laboratory Tests 02/20 0545 Toxicology [place] (0.6 - 1.2 mmol/L) 0.6 A: Chart, progress notes, labs, vital signs and medication list reviewed. Li = 0.6 from over the weekend. [place] increased to 600mg BID. Patient seen at 8:31AM. She presents calm and cooperative. States that her son arrived in [place] yesterday to stay with his paternal grandparents. She reports feeling more at ease over this situation. Reports feeling eager for discharge as there is alot she needs to attend to outside of the hospital - speaking to her landlord, asking her mother for financial help (as her electricity has been turned off) and returning to work. States she remains in favor of following up at [facility] and with visiting nurse for daily medication administration. Describes mood as "pretty good." Affect full, non- labile. Eye contact appropriate. Speech normal in rate, tone and volume. Rates anxiety a 4/10 (10 being the worst). Rates sadness/depression a 2/10 (10 being the worst). She offers no complaints. Reports her energy level is fair. Sleep and appetite remain good. She denies active and passive suicidal ideation, plans , intent. Denies homicidal ideation. Denies auditory and visual hallucinations. She states and also believes she will not harm herself or others. Identifies protective factors of her son, cousin, and mother. Thought process linear, goal- directed. There is no evidence of paranoia, delusions or illogical thought content. Cognition grossly intact. She reports tolerating all medications well and denies side effects. No evidence of movement disorder. She reports feeling safe and ready for discharge, and is in favor of residing with her cousin post- discharge. P: -discharge today into the care of her cousin. -f/u at [facility] for intake at 12:45PM. -resume VNS with [facility] for daily medication administration; to start today. -lab slip provided for Li level. Patient instructed to complete labwork on morning, 02/25/17, BEFORE taking morning [place] dose. Patient verbalized understanding. -patient advised that in the event of an emergency to call [phone]/go to the nearest emergency department. Patient verbalized understanding of all instructions. -all discharge medications were e-prescribed to [facility] in [place] today, per [facility] request. VNS to flower picker prescriptions.
--- NOTE | 2017-02-22 11:05 | SOCIAL WORKER PROG NOTE PSYCH ---
Social Work Progress Note Progress Note Called [facility] to inquire if they will provide services in the [place] area while Madhavi. They can continue the service if she and the cousin are willing to do so. Met with Madhavi and her cousin Tania. Rola Bey APRN was also part of this meeting. Madhavi reports diminished voices and feeling good. Clarified whether or not the plan was for her son to remain in [place] permenantly? Madhavi said that it isn't definete yet and they will see how things go. DCF is aware of the circumstances. Arleth is anxious about her housing situation with possible eviction pending. Encouraged her to excercise legal rights and advocate for herself. Encouraged her to follow up with [facility]. She said she may call today. Anxious to return to work, but they won't have her on the schedule until next week. Gave her a letter for work. Tania said that Madhavi can stay with her indefinetely. Her fiance and Mom live with her as well. She didn't seem to have any concerns with Arleth being there, other than hope that her symptoms won't continue to relapse and require further hospitalization. Called [facility] and gave them T[place] address. Meds will be called into [facility]. A nurse will see her later this afternoon.
--- NOTE | 2017-02-22 11:05 | Patient Discharge Instructions ---
Psych Discharge Inst General Discharge Information Reason for Admission: Patient presented to the [facility] Emergency Department from [facility] on 02/15/17 after disclosing suicidal ideation and command auditory hallucinations to harm herself. Psy Discharge Primary Diag+ Bipolar disorder, MRE depressed, severe with psychotic features Psy Discharge Secondary Diag+ PTSD; R/O Cluster B traits; IBS; hx intusseption; hypothyroidism; hx thyroid CA; hx endometriosis and ovarian cyst. Summary Tests/Major Procedures Laboratory Tests 02/20 0545 Toxicology [place] (0.6 - 1.2 mmol/L) 0.6 Studies Pending at DC: N/A Patient Instructions Contact Information Your Psychiatrist on [facility] was SCOTT FITCH,CHRISTEL Doan/ DIANNE CORMIER APRN. * If you are experiencing an emergency related to this hospitalization, please call [phone] to contact the treating psychiatrist or the psychiatrist-on- call. * To Request a copy of your medical records, please contact the Medical Records Department at [phone]. * To request results of studies pending at the time of discharge, please call [phone]. * Continue your Medications until directed to stop by your Healthcare provider. General Medication Information Please continue to take your new medications and your continued home medications , unless otherwise indicated on your discharge medication list, or unless directed by your or ANJALI to stop them. Special Instructions: DIET: Regular. ACTIVITY LEVEL: No restrictions. Advance Directives Does the Patient have Medical Advance Directives No/Per pt req info given Does Pt have Psychiatric Advance Directives? No/Refused further info Does Patient have a Designated Surrogate Decision Maker: No Information About Psychiatric Advance Directives Provided? Refused Discharge Plan Post Hospital Treatment Plan: Provider Referral Service Date: 02/22/17 Referred To: [facility] Intensive Outpatient Program Intake 02/22/17, 12:45pm [address] [place] [address] Provider Referral Referred To: [[facility]] Notes: [facility] for daily medication administration [phone] Patient advised that in the event of an emergency, call [phone]/go to the nearest emergency department.
--- NOTE | 2017-02-22 11:58 | DISCHARGE SUMMARY REPORT-PSYCH ---
Visit Information Visit Dates/Diagnosis' Admission Date: 02/15/17 Discharge Date: 02/22/17 Reason for Admission: Patient presented to the [facility] Emergency Department from [facility] on 02/15/17 after disclosing suicidal ideation and command auditory hallucinations to harm herself. Psy Discharge Primary Diag: Bipolar disorder, MRE depressed, severe with psychotic features Psy Discharge Secondary Diag: PTSD; R/O Cluster B traits; IBS; hx intussusception; hypothyroidism; hx thyroid CA; hx endometriosis and ovarian cyst. Hospital Course Significant Lab Findings: Lab [place] 0.4 mmol/L L 02/15/17 1329 [place] 0.6 mmol/L 02/20/17 0545 Course Complications: None. Consultations: The patient was seen for admission history and physical by customer support specialist Dr. Pantera Flores. Please see his note for additional information. Allergies: Coded Allergies: NO KNOWN ALLERGIES (04/24/15) Hospital Course/TX Response: The patient was monitored on the unit for safety, mood, suicidal ideation and command auditory hallucinations. She participated in multimodal treatments on the unit. Zyprexa 5mg QAM and 20mg QHS were discontinued as she received little benefit from this medication and dose in managing hallucinations. Haldol 5mg QHS was started for command auditory hallucinations. Haldol was increased from 5mg QHS to 5mg BID and 2 mg daily at 1PM. Cogentin 1mg BID was started to prevent symptoms of EPS from scheduled Haldol. Lithobid was increased from 450mg QAM and 600mg QPM to 600mg BID for mood stabilization. Lamictal 100mg daily was continued for mood stabilization. Trazodone 150mg QHS was continued for insomnia. Klonopin 0.5mg BID was changed to 1mg QHS additionally for insomnia. The patient reported tolerating all medications well and denied side effects. During the hospital course, the patient's mood and affect improved. Command auditory hallucinations and suicidal ideation remitted. A family meeting was held with the patient, her cousin (Tania), Joy Wisdom LCSW, and Sonia. Tania stated that she was willing to have the patient live with her, her fiance and mother post-discharge given that the patient's electricity had been turned off in her apartment and she is undergoing eviction. Tania did not express any safety concerns with the patient being discharge or her discharge plan to follow up with [facility] and visiting nurse services, other than the hope that the patient doesn't relapse into symptoms and require further hospitalization. Both the patient and Tania were in favor of discharge plan. On the date of discharge, 02/22/17, the patient presented calm and cooperative. Stated that her son arrived in [place] yesterday to stay with his paternal grandparents. She reported feeling more at ease over this situation. Reported feeling eager for discharge as there is alot she needs to attend to outside of the hospital - speaking to her landlord, asking her mother for financial help (as her electricity has been turned off) and returning to work. Stated she remains in favor of following up at [facility] and with visiting nurse for daily medication administration. Described mood as "pretty good." Affect full, non-labile. Eye contact appropriate. Speech normal in rate, tone and volume. Rated anxiety a 4/10 (10 being the worst). Rated sadness/ depression a 2/10 (10 being the worst). She offered no complaints. Reported her energy level is fair. Sleep and appetite remain good. She denied active and passive suicidal ideation, plans, intent. Denied homicidal ideation. Denied auditory and visual hallucinations. She stated and also believed she will not harm herself or others. Identified protective factors of her son, cousin, and mother. Thought process linear, goal-directed. There is no evidence of paranoia, delusions or illogical thought content. Cognition grossly intact. She reported tolerating all medications well and denied side effects. There is no evidence of a movement disorder. She reported feeling safe and ready for discharge, and is in favor of residing with her cousin post-discharge. Discharge HBIPS - Tobacco Use Treatment Offered Post DC Medications Offered: Script Given-See Med List Post DC Tobacco Treatment Plan: Refused Tobacco Tx Pgm - EtOH/Drug Use D/O Treatment Offered Post DC Medications Offered: NA-No EtOH/Drug Use D/O Post DC EtOH/SubAbuse TX Plan: NA-No EtOH/Drug Use D/O Metabolic Screening - Screen if on a Neuroleptic Medication - Metabolic screening should include: - Blood Pressure, BMI, Glucose or Hgb A1c, & a - Lipid profile from within the past 365 days. Metabolic Screening () Not Applicable, patient not on a neuroleptic. OR ([X]) Patient on a neuroleptic(s) . Enter below results for Glucose or Hemoglobin A1C, and lipid panel if obtained during the last 365 days. BMI: Blood Pressure: 108/57 Laboratory Results (If applicable): Lab Cholesterol 114 MG/DL 12/09/16513 Cholesterol/HDL Ratio 2 % 12/09/16513 Glucose 83 mg/dL 02/15/17 1329 HDL Cholesterol 51 mg/dL 12/09/16513 LDL Cholesterol, Calc 28 mg/dL L 12/09/16513 Triglycerides 176 mg/dL H 12/09/16513 Discharge Instructions General Discharge Information Discharge Medications: Discharge Medications- (Dose, route, freq, indication): START taking these NEW Home Medications: Nicotine (Nicotine Dose: On the skin, DAILY for Qty: 14 Sent to Patch) 14 MG/24 HOUR 14 Milligram tobacco cessation Refills: 0 Pharm 1 PATCH.TD24 Apply 1 patch topically to upper arm QAM and remove before HS. Clonazepam Dose: ORAL, AT BEDTIME for Qty: 14 Called in to (Klonopin) 1 MG 1 Milligram insomnia/anxiety Refills: 0 Pharm 1 TABLET Take 1 tab po QHS. Trazodone HCl Dose: ORAL, AT BEDTIME for Qty: 14 Sent to (Trazodone HCl) 150 1 Tablet insomnia Refills: 0 Pharm 1 MG TABLET Take 1 tab po QHS. Haloperidol Dose: ORAL, TWICE DAILY for Qty: 28 Sent to (Haloperidol) 5 MG 5 [place]ig[place] hallucinations/clear Refills: 0 Pharm 1 TABLET thoughts Take 1 tab po at QAM and QPM. Haloperidol Dose: ORAL, DAILY@1300 for Qty: 14 Sent to (Haloperidol) 2 MG 2 Milligram hallucinations/clear Refills: 0 Pharm 1 TABLET thoughts Take 1 tab po daily at 1PM. [place] Carbonate Dose: ORAL, TWICE DAILY for Qty: 56 Sent to ([place] Carbonate 600 Milligram mood stabilization Refills: 0 Pharm 1 ER) 300 MG TABLET.ER Take 2 tabs (600mg) po BID. Benztropine Mesylate Dose: ORAL, DAILY @8 AM for Qty: 28 Sent to (Benztropine 1 Milligram muscle stiffness Refills: 0 Pharm 1 Mesylate) 1 MG Take 1 tab po BID. TABLET CHANGES to Home Medications: Lamotrigine Dose: ORAL, Every night for Sent to (Lamotrigine) 100 MG 1 Tablet mood stabilization Pharm 1 TABLET Take 1 tab po QPM. (changed from: Every night for MENTAL HEALTH [ No Instructions ]) STOP taking these DISCONTINUED Home Medications: Olanzapine (Olanzapine) 15 MG Dose: ORAL, 2200 for mood TABLET 15 Milligram stability/hallucinations Take 1 tab po at HS. Reason Stopped: Med no longer needed Olanzapine (Olanzapine) 5 MG Dose: ORAL, TWICE DAILY for mood TABLET 5 Milligram stability/hallucinations Take 1 tab po QAM and at 1PM. Reason Stopped: Changed to different med [place] Carbonate ([place]sey Dose: ORAL, DAILY @8 AM for mood Carbonate ER) 450 MG TABLET.ER 450 Milligram stabilization Take 1 tab po QAM. Reason Stopped: Changed Dose Wolsey Carbonate ([place]sey Dose: ORAL, 2000 for mood stabilization Carbonate ER) 300 MG TABLET.ER 600 Milligram Take 2 tabs po QHS. Reason Stopped: Changed Dose Clonazepam (Clonazepam) 0.5 MG Dose: ORAL, TWICE DAILY for ANXIETY TABLET 1 Tablet Reason Stopped: Changed Dose 1: [facility], [address] [place], [place] [id number] Your Preferred Pharmacy [facility] [address] [place] [id number] Multiple Neuroleptics: ([X]) Not Applicable OR Document below three failed attempts at monotherapy, or a plan to taper to monotherapy, or augmentation of Clozapine. () Patient's Diet: Regular. Patient's Activity: No Restrictions. DC Disposition: The patient to return to the home of her Cousin Tania in [place], [place]. Recommendations: The patient was advised to please take her medications as prescribed. She was advised to attend all IOP programming. She was advised that in the event of an emergency to call [phone]/go to the nearest emergency department. The patient verbalized understanding of all instructions. Referred To: Post Discharge Referrals Provider Referral Service Date: 02/22/17 Referred To: [facility] Intensive Outpatient Program ] Notes: [facility] IOP Intake 02/22/17 12:45pm [address] [place] [address] (t)[phone] Provider Referral Referred To: [facility] Notes: [facility] for daily medication administration [address] [place] [address] [phone] Copies To: [facility] IOP; [facility]
[2017-02-22 12:06] VITALS: BP 108/57
[2017-02-22] MEDS ORDERED: KLONOPIN1 M1 PO (12:17)
[2017-02-22] MEDS ORDERED: TRAZODONE HCL150 M1 PO (12:17)
[2017-02-22] MEDS ORDERED: LAMOTRIGINE100 M2 PO (12:17)
[2017-02-22] MEDS ORDERED: HALOPERIDOL2 M1 PO (12:17)
[2017-02-22] MEDS ORDERED: HALOPERIDOL5 MG PO (12:17)
[2017-02-22] MEDS ORDERED: NICOTINE PATCH1 EAC2 TOP (12:17)
[2017-02-22] MEDS ORDERED: BENZTROPINE MESY1 M1 PO (12:17)
[2017-02-22] MEDS ORDERED: LITHIUM CARBON300 M6 PO (12:17)
== END 2017-02-22 12:40 | DRG 756 ==
LOC: ERH 12:29 → ERHI 19:00 → CP SOUTH 19:00 → ENTRNSPT 22:30 → CP SOUTH 22:48 → CMPTRNSPT 22:54 → ENRESERV 23:59 → CP SOUTH 02-16 15:46
PROVIDERS: Physician Assistant; ADMIT Psychiatry & Neurology Psychiatry
DX: R45.851 Suicidal ideations (principal)
CPT/HCPCS: 36415; 80307; 81001; 81025; 87045; G0480